=== PATIENT | female | born 1945 | race Two or more races ===

== ENCOUNTER 2021-01-19 19:33 | Inpatient (IN) | payer MEDICARE ==
[~2021-01-19] VITALS: Ht 157.5 cm; Wt 83.6 kg
--- NOTE | 2021-01-19 19:59 | PHYS DOC ---
Past Medical History Past Medical History: CAD, CVA, Diabetes-Type II, Hypertension Past Surgical History: Cholecystectomy, , Hysterectomy, Tonsillectomy Smoking Status: Never Smoker Alcohol Use: None Drug Use: None General Adult EDM: Chief Complaint: NAUSEA/VOMITING/DIARRHA HPI: HPI: Patient is a 75 year old female past medical history CVA hypertension hyperlipidemia diabetes and recent diagnosis of Covid presents with a chief complaint of headache nausea and generalized weakness. Patient states she was diagnosed with Covid on . Started having symptoms last Thursday which included severe headache. Since diagnosis patient states she has been severely nauseous and unable to eat or drink. She states she has had several episodes of diarrhea, a cough without sputum production and mild shortness of breath, and a runny nose. Review of Systems: Review of Systems: Constitutional: Denies fever or chills. [] Eyes: Denies change in visual acuity. [] HENT: Denies nasal congestion or sore throat. [] Respiratory: Positive cough denies DENIES shortness of breath. [] Cardiovascular: Denies chest pain or edema. [] GI: Denies abdominal pain, Positive nausea, Positive vomiting, Positive diarrhea. [] : Denies dysuria. [] Musculoskeletal: Denies back pain or joint pain. [] Integument: Denies rash. [] Neurologic: Positive headache, denies focal weakness or sensory changes. [] Endocrine: Denies polyuria or polydipsia. [] Lymphatic: Denies swollen glands. [] Psychiatric: Denies depression or anxiety. [] Heart Score: Risk Factors: Risk Factors: DM, Current or recent (<one month) smoker, HTN, HLP, family history of CAD, obesity. Risk Scores: Score 0 - 3: 2.5% MACE over next 6 weeks - Discharge Home Score 4 - 6: 20.3% MACE over next 6 weeks - Admit for Clinical Observation Score 7 - 10: 72.7% MACE over next 6 weeks - Early Invasive Strategies Allergies: Allergies: Allergies Coded Allergies Type Severity Reaction Last Updated Verified No Known Drug Allergies 03/26/16 No Physical Exam: PE: General: alert, no acute distress. Skin: warm, dry and intact. Head:: Normocephalic, atraumatic. Neck: Trachea midline. Eyes: EOMI, Normal conjunctiva, No drainage CARDIOVASCULAR: Regular rate and rhythm RESPIRATORY: No respiratory distress Back: Full range of motion. MUSCULOSKELETAL: Full range of motion of bilateral upper and lower extremities. GASTROINTESTINAL: Abdomen soft without rebound or guarding. NEUROLOGICAL: Alert and noted to person, place and time. No neurological deficits observed Psychiatric: Cooperative. Normal judgment EKG: EKG: EKG performed at 1940 heart rate [address] elevation no ST depression no acute NC [] Radiology/Procedures: Radiology/Procedures: [] Impression: FINDINGS: The cardiomediastinal silhouette and pulmonary vessels are within normal limits. The lung and pleural spaces are clear. IMPRESSION: No acute cardiopulmonary process. Course & Med Decision Making: Course & Med Decision Making Pertinent Labs and Imaging studies reviewed. (See chart for details) [] Patient was evaluated for chief complaint. Work-up consisted of laboratory analysis radiologic imaging and EKG. Results reviewed and discussed with patient. Treatment included [place] for pain and IV fluids. Dragon Disclaimer: Dragon Disclaimer: This electronic medical record was generated, in whole or in part, using a voice recognition dictation system. Departure Departure Impression: Primary Impression: COVID-19 Additional Impressions: Nausea and vomiting Diarrhea Headache Disposition: ADMITTED INPT THIS HOSP Condition: STABLE Referrals: GENARO GONSALEZ MD (PCP) YOSI BURCH DO Jan 19, 2021 19:59
[2021-01-19] MEDS ORDERED: ONDANSETRON PF 4 MG/2 ML VIAL. IVP ONE (20:00)
[2021-01-19] MEDS ORDERED: DEXAMETHASONE SOD PHOS 4 MG/ML VIAL IVP ONE (20:00)
[2021-01-19] MEDS ORDERED: IV NORMAL SALINE 1000ML BAG 1,000 ML IV ONE (20:00)
[2021-01-19 20:03] LABS: BASO % 0 % (0-3); EOS % 0 % (0-3); HEMATOCRIT 44.6 % (36.0-47.0); HEMOGLOBIN 15.3 g/dL (12.0-15.5); LYMPH # 1.4 x10^3/uL (1.0-4.8); LYMPH % 20 % (24-48); MEAN CORPUSCULAR HEMOGLOBIN 31 pg (25-35); MEAN CORPUSCULAR HGB CONC 34 g/dL (31-37); MEAN CORPUSCULAR VOLUME 90 fL (79-100); MONO # 0.7 x10^3/uL (0.0-1.1); MONO % 10 % (0-9); NEUT # 4.7 x10^3/uL (1.8-7.7); NEUT % 69 % (31-73); PLATELET COUNT 159 x10^3/uL (140-400); RED BLOOD COUNT 4.95 x10^6/uL (3.50-5.40); RED CELL DISTRIBUTION WIDTH 12.9 % (11.5-14.5); WHITE BLOOD COUNT 6.9 x10^3/uL (4.0-11.0)
--- NOTE | 2021-01-19 20:39 | RAD ---
Exam: Chest one view INDICATION: Covid, shortness of breath TECHNIQUE: Frontal view of the chest Comparisons: 03/26/2016 FINDINGS: The cardiomediastinal silhouette and pulmonary vessels are within normal limits. The lung and pleural spaces are clear. IMPRESSION: No acute cardiopulmonary process. Electronically signed by: Sadaf Salcido MD (01/19/2021 8:36 PM) BOB
[2021-01-19 20:54] LABS: CREATININE 1.1 mg/dL (0.6-1.0); GFR 48.3; POTASSIUM 4.1 mmol/L (3.5-5.1)
--- NOTE | 2021-01-19 20:58 | EKG ---
[facility] [address] [place] [address] Test Date: 2021-01-19 Test Time: 19:40:22 Pat Name: RAVI RADERDepartment: Room: Gender: F Delivery Agent: TIM : 1945 Requested By: YOSI BURCH Order Number: [id number] Reading MD: Measurements Intervals [place] Rate: 102 P: 0 IA: 144 QRS: -31 QRSD: 82 T: 59 QT: 312 QTc: 411 Interpretive Statements SINUS TACHYCARDIA ABNORMAL LEFT AXIS DEVIATION QRS(T) CONTOUR ABNORMALITY CONSISTENT WITH ANTEROSEPTAL INFARCT PROBABLY OLD CONSISTENT WITH INFERIOR INFARCT PROBABLY OLD ABNORMAL ECG RI6.02 No previous ECG available for comparison
[2021-01-19 21:00] LABS: ALBUMIN 3.4 g/dL (3.4-5.0); TOTAL BILIRUBIN 0.4 mg/dL (0.2-1.0); TOTAL PROTEIN 6.7 g/dL (6.4-8.2)
[2021-01-19] MEDS ORDERED: LABETALOL 20 MG/4 ML DISP.SYRIN. IVP ONE (21:30)
[2021-01-19] MEDS ORDERED: DEXTROSE 50% 25 GM / 50ML DISP.SYRIN. IV PRN (21:45)
[2021-01-19] MEDS ORDERED: ACETAMINOPHEN 325 MG TABLET. PO PRN (21:45)
[2021-01-19] MEDS ORDERED: DOCUSATE SODIUM 100 MG CAPSULE. PO PRN (21:45)
[2021-01-19] MEDS ORDERED: SENNOSIDES 8.6 MG TABLET PO PRN (21:45)
[2021-01-19] MEDS ORDERED: ONDANSETRON PF 4 MG/2 ML VIAL. IVP PRN (21:45)
[2021-01-19] MEDS ORDERED: HYDROcodone/APAP 5/325MG 1 TAB TABLET PO ONE (22:00)
[2021-01-19 23:50] VITALS: BP 147/82
--- NOTE | 2021-01-20 00:01 | NUR ---
Admitted to room 646 from ER in stable condition. While completing initial assessment patient stated code status wishes are to be a DNR. Educated patient on what a DNR means, patient again verbalized that DNR status was her choice. Spoke to Dr. Craig who gave telephone order and was verified by patient with two RNs. Judi Gardiner, RN & Doris Abarca RN.
[2021-01-20] MEDS: IV NORMAL SALINE 1000ML BAG 1,000 ML IV SCH ×3 (00:41→20:52)
[2021-01-20] MEDS ORDERED: METF500T16 PO (00:47)
[2021-01-20] MEDS ORDERED: GLIP5TAB10 PO (00:47)
[2021-01-20] MEDS ORDERED: CLOP75TA PO (00:47)
[2021-01-20] MEDS ORDERED: MULT-650 PO (02:16)
[2021-01-20] MEDS ORDERED: LISI-130 PO (02:16)
[2021-01-20] MEDS ORDERED: CALC-58 PO (02:16)
[2021-01-20] MEDS ORDERED: LOVA40TA2 PO (02:16)
[2021-01-20] MEDS ORDERED: FLUT16SP NS (02:16)
[2021-01-20] MEDS ORDERED: DULO30CA2 PO (02:16)
[2021-01-20] MEDS ORDERED: NITR0.4T24 SL (02:16)
[2021-01-20] MEDS ORDERED: LORA10TA3 PO (02:16)
[2021-01-20] MEDS ORDERED: AVENOVA (02:17)
[2021-01-20] MEDS ORDERED: DICL100G54 TP (02:17)
[2021-01-20] MEDS ORDERED: GABA600T7 PO (02:17)
[2021-01-20] MEDS ORDERED: CINN500C2 PO (02:21)
[2021-01-20] MEDS ORDERED: CRAN250C PO (02:21)
[2021-01-20 04:30] LABS: BASO % 0 % (0-3); EOS % 0 % (0-3); HEMATOCRIT 42.4 % (36.0-47.0); LYMPH # 0.7 x10^3/uL (1.0-4.8); LYMPH % 14 % (24-48); MEAN CORPUSCULAR HEMOGLOBIN 30 pg (25-35); MEAN CORPUSCULAR HGB CONC 33 g/dL (31-37); MEAN CORPUSCULAR VOLUME 91 fL (79-100); MONO # 0.2 x10^3/uL (0.0-1.1); MONO % 4 % (0-9); NEUT # 4.3 x10^3/uL (1.8-7.7); NEUT % 82 % (31-73); PLATELET COUNT 156 x10^3/uL (140-400); RED BLOOD COUNT 4.64 x10^6/uL (3.50-5.40); RED CELL DISTRIBUTION WIDTH 13.3 % (11.5-14.5); WHITE BLOOD COUNT 5.2 x10^3/uL (4.0-11.0)
[2021-01-20 04:32] VITALS: BP 168/87
[2021-01-20 04:46] LABS: CALCIUM 8.7 mg/dL (8.5-10.1); CREATININE 1.2 mg/dL (0.6-1.0); GFR 43.7; MAGNESIUM 1.2 mg/dL (1.8-2.4); PHOSPHORUS 3.2 mg/dL (2.6-4.7); POTASSIUM 5.4 mmol/L (3.5-5.1)
[2021-01-20 07:25] VITALS: BP 192/78
[2021-01-20] MEDS: PANTOPRAZOLE IV PUSH 40 MG VIAL. IVP SCH (07:54)
[2021-01-20 10:59] VITALS: BP 190/84
[2021-01-20] MEDS: HYDROcodone/APAP 5/325MG 1 TAB TABLET PO PRN (12:13)
--- NOTE | 2021-01-20 12:48 | HP ---
ADMIT DATE: 01/20/2021 CHIEF COMPLAINT: COVID-19, nausea, vomiting, diarrhea, headache and weakness. HISTORY OF PRESENT ILLNESS: The patient is a pleasant 75-year-old female who was diagnosed with COVID-19 about 4 days ago. Now, she has nausea, vomiting, diarrhea, headache and just feels weak. Basically, she has a progression of her COVID-19 disease. I discussed the case with the ER physician. We are going to admit the patient and treat her with COVID protocol. PAST MEDICAL HISTORY: Recent diagnosis of COVID-19 four days ago, CAD, stroke, diabetes, hypertension, cholecystectomy, , hysterectomy, and tonsillectomy. ALLERGIES: None. FAMILY HISTORY: Diabetes. SOCIAL HISTORY: She does not drink, smoke or take drugs. MEDICATIONS: Reviewed, please for the MRAD. REVIEW OF SYSTEMS: GENERAL: No history of weight change, weakness or fevers. SKIN: No bruising, hair changes or rashes. EYES: No blurred, double or loss of vision. NOSE AND THROAT: No history of nosebleeds, hoarseness or sore throat. HEART: No history of palpitations, chest pain or shortness of breath on exertion. LUNGS: She complains of cough. GASTROINTESTINAL: She complains of nausea, vomiting, and diarrhea. GENITOURINARY: No history of frequency, urgency, hesitancy or nocturia. NEUROLOGIC: She complains of headache. PSYCHIATRIC: No history of panic, anxiety or depression. ENDOCRINE: No history of heat or cold intolerance, polyuria or polydipsia. EXTREMITIES: Denies muscle weakness, joint pain, pain on walking or stiffness. PHYSICAL EXAMINATION: VITALS: Within normal limits and are stable. GENERAL: No apparent distress. Alert and oriented. HEENT: Normal cephalic atraumatic, external auditory canals are patent. Eyes: Extraocular muscles are intact, pupils are equally round and reactive to light and accommodation. MUSCULOSKELETAL: Well developed, well nourished, good range of motion. ENDOCRINE: No thyromegaly was palpated. LYMPHATICS: No cervical chain or axillary nodes were noted. HEMATOPOIETIC: No bruising. NECK: Supple, no JVD, no thyromegaly was noted. LUNGS: She has decreased breath sounds on the right with some slight crackles on the left. HEART: RRR, S1, S2 present. Peripheral pulses intact, no obvious murmurs were noted. ABDOMEN: She has got decreased bowel sounds. EXTREMITIES: Without any cyanosis, clubbing, or edema. Pedal pulses intact, Homans sign is negative. NEUROLOGIC: Normal speech, normal tone. A and O x 3, moves all extremities, no obvious focal deficits. PSYCHIATRIC: Normal affect, normal mood. Stable. SKIN: No ulcerations or rashes, good skin turgor, no jaundice. VASCULAR: Good capillary refill, neurovascular bundle appears to be intact. LABORATORY DATA: White count 5, hemoglobin 14, platelets 156. Electrolytes are normal other than potassium of 5.4 and sodium of 133, BUN is 21, creatinine 1.2, glucose 193. Chest x-ray shows no acute process. ASSESSMENT AND PLAN: Recent diagnosis of COVID-19 with progression of disease with headache, nausea, vomiting, diarrhea, and cough. The patient has been admitted. We will order COVID protocol including steroids, antibiotics with Rocephin and doxycycline, vitamins with minerals, oxygen per nasal cannula, codeine cough syrup, aspirin and since she is not hypoxic and does not have a severe leukocytosis or any fever, we can probably hold off on remdesivir for now, but we will monitor that closely. Home meds. DVT prophylaxis. Full code. WILLI RENEE DO DR: TYREE/jatin JOB#: [id number] / [id number]
[2021-01-20] MEDS: ASPIRIN CHEWABLE 81 MG TABLET. PO SCH (13:00)
[2021-01-20] MEDS: DOXYCYCLINE HYCLATE 100 MG TABLET PO SCH ×2 (13:00→20:54)
[2021-01-20] MEDS: MULTIVITAMIN with MINERAL TABLET. PO SCH (13:01)
[2021-01-20] MEDS: cefTRIAXone IV Push 1 GM VIAL. IVP SCH (13:01)
[2021-01-20] MEDS: methylPREDNISolone SOD SUCC PF 40 MG/ML VIAL. IV SCH ×2 (13:01→20:52)
[2021-01-20 15:59] VITALS: BP 191/96
[2021-01-20] MEDS ORDERED: MAGNESIUM SULFATE 2GM 50 ML IV ONE (16:30)
[2021-01-20 19:00] VITALS: BP 187/73
[2021-01-20] MEDS: LACTOBACILLUS RHAMNOSUS GG 1 CAPSULE. PO SCH (20:54)
[2021-01-20] MEDS: ENOXAPARIN 40 MG/0.4 ML SYRINGE. SQ SCH ×2 (20:54→21:00)
[2021-01-20] MEDS ORDERED: cloNIDine HCL 0.3 MG TABLET PO PRN (21:30)
[2021-01-20] MEDS ORDERED: NITROGLYCERIN SUBLINGUAL 0.4 MG BOTTLE OF 25. SL PRN (21:30)
[2021-01-20] MEDS ORDERED: DICLOFENAC SODIUM 1% TOPICAL GEL 100GM TUBE. TP PRN (21:30)
[2021-01-20] MEDS: GABAPENTIN 300 MG CAPSULE. PO SCH (21:55)
[2021-01-20] MEDS: ATORVASTATIN CALCIUM 10 MG TABLET. PO SCH (21:55)
[2021-01-20] MEDS: CLOPIDOGREL BISULFATE 75 MG TABLET PO SCH (21:56)
[2021-01-20] MEDS: glipiZIDE 5 MG TABLET PO SCH (21:57)
[2021-01-20 23:00] VITALS: BP 189/91
[2021-01-21] VITALS (7 sets, daily range): BP systolic 156–198; BP diastolic 70–100
[2021-01-21] MEDS: IV NORMAL SALINE 1000ML BAG 1,000 ML IV SCH ×2 (04:00→13:36)
[2021-01-21] MEDS ORDERED: IRON PO SCH (09:00)
[2021-01-21] MEDS ORDERED: MULTIVITS MIN PO SCH (09:00)
[2021-01-21] MEDS ORDERED: LUTEIN PO SCH (09:00)
[2021-01-21] MEDS ORDERED: [UNRECOGNIZED DRUG - OTHER] PO SCH (09:00)
[2021-01-21] MEDS: PANTOPRAZOLE IV PUSH 40 MG VIAL. IVP SCH (09:28)
[2021-01-21] MEDS: CLOPIDOGREL BISULFATE 75 MG TABLET PO SCH (09:28)
[2021-01-21] MEDS: FLUTICASONE 50MCG/NASAL SPRAY 16GM BOTTLE. NS SCH (09:28)
[2021-01-21] MEDS: DULoxetine HCL 30 MG CAPSULE.DR PO SCH (09:28)
[2021-01-21] MEDS: methylPREDNISolone SOD SUCC PF 40 MG/ML VIAL. IV SCH ×2 (09:29→21:17)
[2021-01-21] MEDS: DOXYCYCLINE HYCLATE 100 MG TABLET PO SCH ×2 (09:29→21:17)
[2021-01-21] MEDS: glipiZIDE 5 MG TABLET PO SCH ×2 (09:29→21:18)
[2021-01-21] MEDS: MULTIVITAMIN with MINERAL TABLET. PO SCH (09:29)
[2021-01-21] MEDS: GABAPENTIN 300 MG CAPSULE. PO SCH ×2 (09:29→21:18)
[2021-01-21] MEDS: LISINOPRIL 20 MG TABLET PO SCH (09:29)
[2021-01-21] MEDS: LACTOBACILLUS RHAMNOSUS GG 1 CAPSULE. PO SCH ×2 (09:29→21:18)
[2021-01-21] MEDS: ASPIRIN CHEWABLE 81 MG TABLET. PO SCH (09:30)
[2021-01-21] MEDS: CETIRIZINE HCL 10 MG TABLET. PO SCH (09:30)
[2021-01-21] MEDS: metFORMIN 500 MG TABLET PO SCH ×2 (09:39→17:48)
[2021-01-21] MEDS: guaiFENesin/CODEINE 100mg/10mg 5 ML LIQUID PO PRN ×2 (09:45→17:58)
--- NOTE | 2021-01-21 12:29 | NUR ---
CHRISTOPHER following for discharge planning. Spoke with RN and reviewed chart. Pt lives home alone. Pt currently on room air, IV Rocephin, ADA diet, COVID positive. PT/OT recommendation is SNU. CHRISTOPHER spoke with pt who is agreeable. Pt stated no preference in SNU provider stating she has never been to one. Pt choice of vendor form completed. CHRISTOPHER phoned and faxed referral to [facility] as they take pt's [employer] insurance and patients who are COVID positive. Pt stated she tested positive on 01/17. CHRISTOPHER following. Addendum: 01/21/21 at 1532 by RADHA WHITE Spoke with Shandra and pt accepted clinically for admission at [facility]. Shandra to submit for insurance authorization today, 01/21. Possible discharge tomorrow pending insurance approval.
--- NOTE | 2021-01-21 12:55 | PDOC ---
PROGRESS NOTES Date of Service: DATE: 01/21/21 TIME: 12:52 Chief Complaint Chief Complaint acute COVID-19 with progression of disease with headache, nausea, vomiting, diarrhea, and cough. hold off on remdesivir History of Present Illness History of Present Illness cont the COVID protocol including steroids, antibiotics with Rocephin and doxycycline, vitamins with minerals, oxygen per nasal cannula, PT seleneal says she is too weak to DC home, Vitals Vitals Vital Signs Date Time Temp Pulse Resp B/P (MAP) Pulse Ox O2 Delivery O2 Flow Rate FiO2 01/21/21 11:00 97.6 60 18 158/77 (104) 98 Room Air 97.6 Physical Exam General: Alert, Oriented X3, Cooperative, mild distress Heart: Regular rate, Normal S2 Lungs: Wheezing Abdomen: Normal bowel sounds Extremities: No clubbing, No cyanosis, No edema Labs LABS Laboratory Tests Test 01/20/21 16:51 01/20/21 20:10 01/21/21 07:07 01/21/21 10:39 Glucose (Fingerstick) 228 mg/dL (70-99) 274 mg/dL (70-99) 219 mg/dL (70-99) 254 mg/dL (70-99) Review of Systems Review of Systems she feels improved and is hoping to DC soon Assessment and Plan Assessmemt and Plan Problems Medical Problems: (1) COVID-19 Status: Acute (2) Diarrhea Status: Acute (3) Headache Status: Acute (4) Nausea and vomiting Status: Acute Comment Review of Relevant I have reviewed the following items kaylee (where applicable) has been applied. Labs Laboratory Tests Test 01/19/21 19:49 01/19/21 20:32 01/20/21 03:30 01/20/21 11:46 White Blood Count 6.9 x10^3/uL (4.0-11.0) 5.2 x10^3/uL (4.0-11.0) Red Blood Count 4.95 x10^6/uL (3.50-5.40) 4.64 x10^6/uL (3.50-5.40) Hemoglobin 15.3 g/dL (12.0-15.5) 14.0 g/dL (12.0-15.5) Hematocrit 44.6 % (36.0-47.0) 42.4 % (36.0-47.0) Mean Corpuscular Volume 90 fL (79-100) 91 fL (79-100) Mean Corpuscular Hemoglobin 31 pg (25-35) 30 pg (25-35) Mean Corpuscular Hemoglobin Concent 34 g/dL (31-37) 33 g/dL (31-37) Red Cell Distribution Width 12.9 % (11.5-14.5) 13.3 % (11.5-14.5) Platelet Count 159 x10^3/uL (140-400) 156 x10^3/uL (140-400) Neutrophils (%) (Auto) 69 % (31-73) 82 % (31-73) Lymphocytes (%) (Auto) 20 % (24-48) 14 % (24-48) Monocytes (%) (Auto) 10 % (0-9) 4 % (0-9) Eosinophils (%) (Auto) 0 % (0-3) 0 % (0-3) Basophils (%) (Auto) 0 % (0-3) 0 % (0-3) Neutrophils # (Auto) 4.7 x10^3/uL (1.8-7.7) 4.3 x10^3/uL (1.8-7.7) Lymphocytes # (Auto) 1.4 x10^3/uL (1.0-4.8) 0.7 x10^3/uL (1.0-4.8) Monocytes # (Auto) 0.7 x10^3/uL (0.0-1.1) 0.2 x10^3/uL (0.0-1.1) Eosinophils # (Auto) 0.0 x10^3/uL (0.0-0.7) 0.0 x10^3/uL (0.0-0.7) Basophils # (Auto) 0.0 x10^3/uL (0.0-0.2) 0.0 x10^3/uL (0.0-0.2) Sodium Level 133 mmol/L (136-145) 138 mmol/L (136-145) Potassium Level 4.1 mmol/L (3.5-5.1) 5.4 mmol/L (3.5-5.1) Chloride Level 99 mmol/L (98-107) 104 mmol/L (98-107) Carbon Dioxide Level 21 mmol/L (21-32) 26 mmol/L (21-32) Anion Gap 13 (6-14) 8 (6-14) Blood Urea Nitrogen 20 mg/dL (7-20) 21 mg/dL (7-20) Creatinine 1.1 mg/dL (0.6-1.0) 1.2 mg/dL (0.6-1.0) Estimated GFR (Cockcroft-Gault) 48.3 43.7 BUN/Creatinine Ratio 18 (6-20) Glucose Level 183 mg/dL (70-99) 193 mg/dL (70-99) Calcium Level 9.0 mg/dL (8.5-10.1) 8.7 mg/dL (8.5-10.1) Total Bilirubin 0.4 mg/dL (0.2-1.0) Aspartate Amino Transf (AST/SGOT) 58 U/L (15-37) Alanine Aminotransferase (ALT/SGPT) 57 U/L (14-59) Alkaline Phosphatase 89 U/L (46-116) Troponin I Quantitative < 0.017 ng/mL (0.000-0.055) Total Protein 6.7 g/dL (6.4-8.2) Albumin 3.4 g/dL (3.4-5.0) Albumin/Globulin Ratio 1.0 (1.0-1.7) Phosphorus Level 3.2 mg/dL (2.6-4.7) Magnesium Level 1.2 mg/dL (1.8-2.4) Glucose (Fingerstick) 190 mg/dL (70-99) Test 01/20/21 16:51 01/20/21 20:10 01/21/21 07:07 01/21/21 10:39 Glucose (Fingerstick) 228 mg/dL (70-99) 274 mg/dL (70-99) 219 mg/dL (70-99) 254 mg/dL (70-99) Laboratory Tests Test 01/20/21 16:51 01/20/21 20:10 01/21/21 07:07 01/21/21 10:39 Glucose (Fingerstick) 228 mg/dL (70-99) 274 mg/dL (70-99) 219 mg/dL (70-99) 254 mg/dL (70-99) Medications Current Medications Ondansetron HCl (Zofran) 4 mg 1X ONCE IVP Last administered on 01/19/21at 20:35; Start 01/19/21 at 20:00; Stop 01/19/21 at 20:01; Status DC Sodium Chloride 1,000 ml @ 1,000 mls/hr 1X ONCE IV Last administered on 01/19/21at 20:35; Start 01/19/21 at 20:00; Stop 01/19/21 at 20:59; Status DC Dexamethasone Sodium Phosphate (Decadron) 10 mg 1X ONCE IVP Last administered on 01/19/21at 20:36; Start 01/19/21 at 20:00; Stop 01/19/21 at 20:06; Status DC Labetalol HCl (Normodyne Iv Push) 20 mg 1X ONCE IVP Last administered on 01/19/21at 21:11; Start 01/19/21 at 21:30; Stop 01/19/21 at 21:31; Status DC Acetaminophen/ Hydrocodone Bitart (Lortab 5/325) 1 tab 1X ONCE PO Last administered on 01/19/21at 21:55; Start 01/19/21 at 22:00; Stop 01/19/21 at 22:01; Status DC Sennosides (Senna) 17.2 mg PRN BID PRN PO CONSTIPATION; Start 01/19/21 at 21:45 Docusate Sodium (Colace) 100 mg PRN DAILY PRN PO HARD STOOLS; Start 01/19/21 at 21:45 Ondansetron HCl (Zofran) 4 mg PRN Q6HRS PRN IVP NAUSEA/VOMITING 1ST CHOICE Last administered on 01/20/21at 00:40; Start 01/19/21 at 21:45 Dextrose (Dextrose 50%-Water Syringe) 12.5 gm PRN Q15MIN PRN IV SEE COMMENTS; Start 01/19/21 at 21:45 Sodium Chloride 1,000 ml @ 100 mls/hr Q10H IV Last administered on 01/20/21at 20:52; Start 01/19/21 at 22:00 Acetaminophen (Tylenol) 650 mg PRN Q4HRS PRN PO TEMP OVER 100.4F OR MILD PAIN; Start 01/19/21 at 21:45 Pantoprazole Sodium (PROTONIX VIAL for IV PUSH) 40 mg DAILYAC IVP Last administered on 01/21/21 09:28; Start 01/20/21 at 07:30 Acetaminophen/ Hydrocodone Bitart (Lortab 5/325) 1 tab PRN Q6HRS PRN PO MODERATE PAIN 4-6 Last administered on 01/20/21at 12:13; Start 01/20/21 at 01:15 Multivitamins (Thera M Plus) 1 tab DAILY PO Last administered on 01/21/21 09:29; Start 01/20/21 at 13:00 Aspirin (Aspirin Chewable) 81 mg DAILYWBKFT PO Last administered on 01/21/21 09:30; Start 01/20/21 at 13:00 Guaifenesin/ Codeine Phosphate (Robitussin Ac) 5 ml PRN Q6HRS PRN PO COUGH; Start 01/20/21 at 12:30 Doxycycline Hyclate (Vibra-Tab) 100 mg BID PO Last administered on 01/21/21 09:29; Start 01/20/21 at 13:00 Ceftriaxone Sodium (Rocephin) 1 gm Q24H IVP Last administered on 01/20/21at 13:01; Start 01/20/21 at 13:00 Methylprednisolone Sodium Succinate (SOLU-Medrol 40MG VIAL) 40 mg BID IV Last a dministered on 01/21/21 09:29; Start 01/20/21 at 13:00 Enoxaparin Sodium (Lovenox 40mg Syringe) 40 mg Q24H SQ ; Start 01/20/21 at 21:00 Magnesium Sulfate 50 ml @ 25 mls/hr 1X ONCE IV Last administered on 01/20/21at 16:55; Start 01/20/21 at 16:30; Stop 01/20/21 at 18:29; Status DC Lactobacillus Rhamnosus (Culturelle) 1 cap BID PO Last administered on 01/21/21 09:29; Start 01/20/21 at 21:00 Clonidine HCl (Catapres) 0.3 mg 1X PRN PRN PO HYPERTENSION Last administered on 01/20/21at 21:55; Start 01/20/21 at 21:30 Clopidogrel Bisulfate (Plavix) 75 mg DAILY PO Last administered on 01/21/21 09:28; Start 01/20/21 at 22:00 Diclofenac Sodium (Voltaren) 1 sawyer PRN QID PRN TP MUSCLE PAIN; Start 01/20/21 at 21:30 Duloxetine HCl (Cymbalta) 30 mg DAILY PO Last administered on 01/21/21 09:28; Start 01/21/21 at 09:00 Fluticasone Propionate (Flonase) 2 spray DAILY NS Last administered on 01/21/21 09:28; Start 01/21/21 at 09:00 Glipizide (Glucotrol) 5 mg BID PO Last administered on 01/21/21 09:29; Start 01/20/21 at 22:00 Lisinopril (Prinivil) 40 mg DAILY PO Last administered on 01/21/21 09:29; Start 01/21/21 at 09:00 Metformin HCl (Glucophage) 500 mg BIDWMEALS PO Last administered on 01/21/21at 09:39; Start 01/21/21 at 08:00 Nitroglycerin (Nitrostat) 0.4 mg PRN Q5MIN PRN SL CHEST PAIN; Start 01/20/21 at 21:30 Gabapentin (Neurontin) 300 mg BID PO Last administered on 01/21/21 09:29; Start 01/20/21 at 22:00 Cetirizine HCl (ZyrTEC) 10 mg DAILY PO Last administered on 01/21/21 09:30; Start 01/21/21 at 09:00 Atorvastatin Calcium (Lipitor) 10 mg QHS PO Last administered on 01/20/21at 21:55; Start 01/20/21 at 22:00 Non-Formulary Medication (Multivits-Min/ Iron/FA/Lutein (Centrum Silver Women Tablet)) 1 each DAILY PO ; Start 01/21/21 at 09:00; Status UNV Active Scripts Active Reported Cinnamon (Cinnamon Bark) 500 Mg Capsule 2,000 Mg PO BID Cranberry (Cranberry Extract) 250 Mg Capsule 1 Cap PO BID 30 Days [avenova] Voltaren (Diclofenac Sodium) 100 Gm Gel..gram. 1 Gm TP QID PRN 30 Days apply to affected area(s) Gabapentin 600 Mg Tablet 300 Mg PO BID Cymbalta (Duloxetine Hcl) 30 Mg Capsule.dr 1 Cap PO DAILY Nitrostat (Nitroglycerin) 0.4 Mg Tab.subl 0.4 Mg SL PRN Q5MIN PRN Calcium 600+D Plus Minerals Tb (Calcium Carb/Vit D3/Minerals) 1 Each Tablet 2 Tab PO BID 30 Days Centrum Silver Women Tablet (Multivits-Min/Iron/FA/Lutein) 1 Each Tablet 1 Each PO DAILY Fluticasone Propionate Nasal [place] (Fluticasone Propionate) 16 Gm [place].susp 2 [place] NS DAILY Loratadine 10 Mg Tablet 1 Tab PO DAILY Lisinopril 40 Mg Tablet 1 Tab PO DAILY Lovastatin 40 Mg Tablet 40 Mg PO HS Metformin Hcl 500 Mg Tablet 500 Mg PO BIDWMEALS PRN Glipizide 5 Mg Tablet 1 Tab PO BID Clopidogrel (Clopidogrel Bisulfate) 75 Mg Tablet 1 Tab PO DAILY Vitals/I & O Vital Sign - Last 24 Hours 01/20/21 01/20/21 01/20/21 01/20/21 15:59 19:00 20:00 21:55 Temp 97.1 96.9 97.1 96.9 Pulse 58 66 69 Resp 18 18 B/P (MAP) 191/96 (127) 187/73 (111) 208/105 Pulse Ox 98 100 O2 Delivery Room Air Room Air Room Air 01/20/21 01/21/21 01/21/21 01/21/21 23:00 03:00 07:00 08:00 Temp 97.2 97.0 97.0 97.2 97.0 97.0 Pulse 65 63 83 Resp 16 18 18 B/P (MAP) 189/91 (123) 179/81 (113) 198/100 (132) Pulse Ox 99 100 97 O2 Delivery Room Air Room Air Room Air Room Air 01/21/21 01/21/21 01/21/21 09:29 09:30 11:00 Temp 97.6 97.6 Pulse 83 73 60 Resp 18 B/P (MAP) 198/100 163/70 (101) 158/77 (104) Pulse Ox 98 O2 Delivery Room Air Intake and Output 01/20/21 01/20/21 01/21/21 15:00 23:00 07:00 Intake Total 240 ml 400 ml 1300 ml Output Total 600 ml Balance 240 ml 400 ml 700 ml Justicifation of Admission Dx: Justifications for Admission: Justification of Admission Dx: Yes JACQUIE MISTRY MD Jan 21, 2021 12:55
[2021-01-21] MEDS: cefTRIAXone IV Push 1 GM VIAL. IVP SCH (13:35)
[2021-01-21] MEDS: ENOXAPARIN 40 MG/0.4 ML SYRINGE. SQ SCH ×2 (21:00→21:17)
[2021-01-21] MEDS: ATORVASTATIN CALCIUM 10 MG TABLET. PO SCH (21:18)
[2021-01-22] MEDS: IV NORMAL SALINE 1000ML BAG 1,000 ML IV SCH (01:22)
[2021-01-22 03:00] VITALS: BP 208/97
[2021-01-22] MEDS: guaiFENesin/CODEINE 100mg/10mg 5 ML LIQUID PO PRN (05:40)
[2021-01-22] MEDS: HYDROcodone/APAP 5/325MG 1 TAB TABLET PO PRN (05:41)
[2021-01-22] MEDS ORDERED: LABETALOL 20 MG/4 ML DISP.SYRIN. IVP PRN (06:45)
[2021-01-22 07:00] VITALS: BP 217/98
[2021-01-22] MEDS: methylPREDNISolone SOD SUCC PF 40 MG/ML VIAL. IV SCH (07:51)
[2021-01-22] MEDS: ASPIRIN CHEWABLE 81 MG TABLET. PO SCH (07:51)
[2021-01-22] MEDS: metFORMIN 500 MG TABLET PO SCH (07:51)
[2021-01-22] MEDS: LACTOBACILLUS RHAMNOSUS GG 1 CAPSULE. PO SCH (07:51)
[2021-01-22] MEDS: PANTOPRAZOLE IV PUSH 40 MG VIAL. IVP SCH (07:51)
[2021-01-22] MEDS: MULTIVITAMIN with MINERAL TABLET. PO SCH (07:52)
[2021-01-22] MEDS: GABAPENTIN 300 MG CAPSULE. PO SCH (07:52)
[2021-01-22] MEDS: DOXYCYCLINE HYCLATE 100 MG TABLET PO SCH (07:52)
[2021-01-22] MEDS: glipiZIDE 5 MG TABLET PO SCH (07:52)
[2021-01-22] MEDS: CLOPIDOGREL BISULFATE 75 MG TABLET PO SCH (07:52)
[2021-01-22] MEDS: DULoxetine HCL 30 MG CAPSULE.DR PO SCH (07:52)
[2021-01-22] MEDS: CETIRIZINE HCL 10 MG TABLET. PO SCH (07:54)
--- NOTE | 2021-01-22 08:37 | PDOC ---
PROGRESS NOTES Date of Service: DATE: 01/22/21 TIME: 08:36 Chief Complaint Chief Complaint acute COVID-19 with progression of disease with headache, nausea, vomiting, diarrhea, and cough. hold off on remdesivir History of Present Illness History of Present Illness 01/22, more weakness today, headache, some decnet PO intake, she can barely get to the bathroom with a walker due to weakness, acute COVID symptoms cont the COVID protocol including steroids, antibiotics with Rocephin and doxycycline, vitamins with minerals, oxygen per nasal cannula, PT benny says she is too weak to DC home, Vitals Vitals Vital Signs Date Time Temp Pulse Resp B/P (MAP) Pulse Ox O2 Delivery O2 Flow Rate FiO2 01/22/21 07:00 97.8 70 18 217/98 (137) 99 Nasal Cannula 2.0 97.8 Physical Exam General: Alert, Oriented X3, Cooperative, mild distress Heart: Regular rate, Normal S2 Lungs: Wheezing Abdomen: Normal bowel sounds Extremities: No clubbing, No cyanosis, No edema Labs LABS Laboratory Tests Test 01/21/21 10:39 01/21/21 16:39 01/21/21 19:07 01/22/21 07:08 Glucose (Fingerstick) 254 mg/dL (70-99) 132 mg/dL (70-99) 195 mg/dL (70-99) 156 mg/dL (70-99) Assessment and Plan Assessmemt and Plan Problems Medical Problems: (1) COVID-19 Status: Acute (2) Diarrhea Status: Acute (3) Headache Status: Acute (4) Nausea and vomiting Status: Acute Comment Review of Relevant I have reviewed the following items kaylee (where applicable) has been applied. Labs Laboratory Tests Test 01/20/21 11:46 01/20/21 16:51 01/20/21 20:10 01/21/21 07:07 Glucose (Fingerstick) 190 mg/dL (70-99) 228 mg/dL (70-99) 274 mg/dL (70-99) 219 mg/dL (70-99) Test 01/21/21 10:39 01/21/21 16:39 01/21/21 19:07 01/22/21 07:08 Glucose (Fingerstick) 254 mg/dL (70-99) 132 mg/dL (70-99) 195 mg/dL (70-99) 156 mg/dL (70-99) Laboratory Tests Test 01/21/21 10:39 01/21/21 16:39 01/21/21 19:07 01/22/21 07:08 Glucose (Fingerstick) 254 mg/dL (70-99) 132 mg/dL (70-99) 195 mg/dL (70-99) 156 mg/dL (70-99) Medications Current Medications Ondansetron HCl (Zofran) 4 mg 1X ONCE IVP Last administered on 01/19/21at 20:35; Start 01/19/21 at 20:00; Stop 01/19/21 at 20:01; Status DC Sodium Chloride 1,000 ml @ 1,000 mls/hr 1X ONCE IV Last administered on 01/19/21at 20:35; Start 01/19/21 at 20:00; Stop 01/19/21 at 20:59; Status DC Dexamethasone Sodium Phosphate (Decadron) 10 mg 1X ONCE IVP Last administered on 01/19/21at 20:36; Start 01/19/21 at 20:00; Stop 01/19/21 at 20:06; Status DC Labetalol HCl (Normodyne Iv Push) 20 mg 1X ONCE IVP Last administered on 01/19/21at 21:11; Start 01/19/21 at 21:30; Stop 01/19/21 at 21:31; Status DC Acetaminophen/ Hydrocodone Bitart (Lortab 5/325) 1 tab 1X ONCE PO Last a dministered on 01/19/21at 21:55; Start 01/19/21 at 22:00; Stop 01/19/21 at 22:01; Status DC Sennosides (Senna) 17.2 mg PRN BID PRN PO CONSTIPATION; Start 01/19/21 at 21:45 Docusate Sodium (Colace) 100 mg PRN DAILY PRN PO HARD STOOLS; Start 01/19/21 at 21:45 Ondansetron HCl (Zofran) 4 mg PRN Q6HRS PRN IVP NAUSEA/VOMITING 1ST CHOICE Last administered on 01/20/21at 00:40; Start 01/19/21 at 21:45 Dextrose (Dextrose 50%-Water Syringe) 12.5 gm PRN Q15MIN PRN IV SEE COMMENTS; Start 01/19/21 at 21:45 Sodium Chloride 1,000 ml @ 100 mls/hr Q10H IV Last administered on 01/22/21 01:22; Start 01/19/21 at 22:00 Acetaminophen (Tylenol) 650 mg PRN Q4HRS PRN PO TEMP OVER 100.4F OR MILD PAIN; Start 01/19/21 at 21:45 Pantoprazole Sodium (PROTONIX VIAL for IV PUSH) 40 mg DAILYAC IVP Last administered on 01/22/21 07:51; Start 01/20/21 at 07:30 Acetaminophen/ Hydrocodone Bitart (Lortab 5/325) 1 tab PRN Q6HRS PRN PO MODERATE PAIN 4-6 Last administered on 01/22/21 05:41; Start 01/20/21 at 01:15 Multivitamins (Thera M Plus) 1 tab DAILY PO Last administered on 01/22/21 07:52; Start 01/20/21 at 13:00 Aspirin (Aspirin Chewable) 81 mg DAILYWBKFT PO Last administered on 01/22/21 07:51; Start 01/20/21 at 13:00 Guaifenesin/ Codeine Phosphate (Robitussin Ac) 5 ml PRN Q6HRS PRN PO COUGH Last administered on 01/22/21 05:40; Start 01/20/21 at 12:30 Doxycycline Hyclate (Vibra-Tab) 100 mg BID PO Last administered on 01/22/21 07:52; Start 01/20/21 at 13:00 Ceftriaxone Sodium (Rocephin) 1 gm Q24H IVP Last administered on 01/21/21 13:35; Start 01/20/21 at 13:00 Methylprednisolone Sodium Succinate (SOLU-Medrol 40MG VIAL) 40 mg BID IV Last administered on 01/22/21 07:51; Start 01/20/21 at 13:00 Enoxaparin Sodium (Lovenox 40mg Syringe) 40 mg Q24H SQ ; Start 01/20/21 at 21:00 Magnesium Sulfate 50 ml @ 25 mls/hr 1X ONCE IV Last administered on 01/20/21at 16:55; Start 01/20/21 at 16:30; Stop 01/20/21 at 18:29; Status DC Lactobacillus Rhamnosus (Culturelle) 1 cap BID PO Last administered on 01/22/21 07:51; Start 01/20/21 at 21:00 Clonidine HCl (Catapres) 0.3 mg 1X PRN PRN PO HYPERTENSION Last administered on 01/20/21at 21:55; Start 01/20/21 at 21:30 Clopidogrel Bisulfate (Plavix) 75 mg DAILY PO Last administered on 01/22/21 07:52; Start 01/20/21 at 22:00 Diclofenac Sodium (Voltaren) 1 sawyer PRN QID PRN TP MUSCLE PAIN; Start 01/20/21 at 21:30 Duloxetine HCl (Cymbalta) 30 mg DAILY PO Last administered on 01/22/21 07:52; Start 01/21/21 at 09:00 Fluticasone Propionate (Flonase) 2 spray DAILY NS Last administered on 01/21/21at 09:28; Start 01/21/21 at 09:00 Glipizide (Glucotrol) 5 mg BID PO Last administered on 01/22/21at 07:52; Start 01/20/21 at 22:00 Lisinopril (Prinivil) 40 mg DAILY PO Last administered on 01/21/21at 09:29; Start 01/21/21 at 09:00 Metformin HCl (Glucophage) 500 mg BIDWMEALS PO Last administered on 01/22/21 07:51; Start 01/21/21 at 08:00 Nitroglycerin (Nitrostat) 0.4 mg PRN Q5MIN PRN SL CHEST PAIN; Start 01/20/21 at 21:30 Gabapentin (Neurontin) 300 mg BID PO Last administered on 01/22/21 07:52; Start 01/20/21 at 22:00 Cetirizine HCl (ZyrTEC) 10 mg DAILY PO Last administered on 01/22/21 07:54; Start 01/21/21 at 09:00 Atorvastatin Calcium (Lipitor) 10 mg QHS PO Last administered on 01/21/21at 21:18; Start 01/20/21 at 22:00 Non-Formulary Medication (Multivits-Min/ Iron/FA/Lutein (Centrum Silver Women Tablet)) 1 each DAILY PO ; Start 01/21/21 at 09:00; Status UNV Labetalol HCl (Normodyne Iv Push) 20 mg PRN Q2HR PRN IVP HYPERTENSION; Start 01/22/21 at 06:45 Active Scripts Active Reported Cinnamon (Cinnamon Bark) 500 Mg Capsule 2,000 Mg PO BID Cranberry (Cranberry Extract) 250 Mg Capsule 1 Cap PO BID 30 Days [avenova] Voltaren (Diclofenac Sodium) 100 Gm Gel..gram. 1 Gm TP QID PRN 30 Days apply to affected area(s) Gabapentin 600 Mg Tablet 300 Mg PO BID Cymbalta (Duloxetine Hcl) 30 Mg Capsule.dr 1 Cap PO DAILY Nitrostat (Nitroglycerin) 0.4 Mg Tab.subl 0.4 Mg SL PRN Q5MIN PRN Calcium 600+D Plus Minerals Tb (Calcium Carb/Vit D3/Minerals) 1 Each Tablet 2 Tab PO BID 30 Days Centrum Silver Women Tablet (Multivits-Min/Iron/FA/Lutein) 1 Each Tablet 1 Each PO DAILY Fluticasone Propionate Nasal [place] (Fluticasone Propionate) 16 Gm [place].susp 2 [place] NS DAILY Loratadine 10 Mg Tablet 1 Tab PO DAILY Lisinopril 40 Mg Tablet 1 Tab PO DAILY Lovastatin 40 Mg Tablet 40 Mg PO HS Metformin Hcl 500 Mg Tablet 500 Mg PO BIDWMEALS PRN Glipizide 5 Mg Tablet 1 Tab PO BID Clopidogrel (Clopidogrel Bisulfate) 75 Mg Tablet 1 Tab PO DAILY Vitals/I & O Vital Sign - Last 24 Hours 01/21/21 01/21/21 01/21/21 01/21/21 09:29 09:30 11:00 15:00 Temp 97.6 96.9 97.6 96.9 Pulse 83 73 60 70 Resp 18 20 B/P (MAP) 198/100 163/70 (101) 158/77 (104) 156/75 (102) Pulse Ox 98 96 O2 Delivery Room Air Room Air 01/21/21 01/21/21 01/21/21 01/22/21 19:00 20:20 23:03 03:00 Temp 98.0 98.4 97.2 98.0 98.4 97.2 Pulse 73 77 75 Resp 18 20 18 B/P (MAP) 179/97 (124) 185/90 (121) 208/97 (134) Pulse Ox 97 98 97 O2 Delivery Room Air Room Air Room Air Room Air 01/22/21 01/22/21 05:41 07:00 Temp 97.8 97.8 Pulse 70 Resp 20 18 B/P (MAP) 217/98 (137) Pulse Ox 99 O2 Delivery Nasal Cannula Nasal Cannula O2 Flow Rate 2.0 Intake and Output 01/21/21 01/21/21 01/22/21 15:00 23:00 07:00 Intake Total 240 ml 200 ml Balance 240 ml 200 ml Justicifation of Admission Dx: Justifications for Admission: Justification of Admission Dx: Yes JACQUIE MISTRY MD Jan 22, 2021 08:37
[2021-01-22] MEDS: FLUTICASONE 50MCG/NASAL SPRAY 16GM BOTTLE. NS SCH (09:00)
[2021-01-22 09:28] VITALS: BP 170/94
[2021-01-22] MEDS: LISINOPRIL 20 MG TABLET PO SCH (09:28)
[2021-01-22] MEDS ORDERED: ENOX40DI3 SQ (11:27)
[2021-01-22] MEDS ORDERED: DOCU-153 PO (11:27)
[2021-01-22] MEDS ORDERED: ZINC100T PO (11:27)
[2021-01-22] MEDS ORDERED: PRED-220 PO (11:27)
[2021-01-22] MEDS ORDERED: DOXY100T PO (11:27)
[2021-01-22] MEDS ORDERED: ASPI-630 PO (11:27)
[2021-01-22] MEDS ORDERED: GUAI120L35 PO (11:27)
--- NOTE | 2021-01-22 11:38 | NUR ---
SW following for discharge planning. Spoke with RN and reviewed chart. Pt to discharge to [facility] today, 01/22. Pt on room air and oral medications. SW waiting on discharge orders. Clinicals ready to be sent with pt. RN to call report. Transportation arranged for 1300. SW following. Addendum: 01/22/21 at 1152 by RADHA WHITE Discharge orders phoned and faxed. No further SW needs at this time.
--- NOTE | 2021-01-22 11:46 | SNU/HH DC ---
DISCHARGE ORDERS DISCHARGE INFORMATION: DISCHARGE DATE: Jan 22, 2021 FINAL DIAGNOSIS COVID 19 pneumonia Problems Medical Problems: (1) COVID-19 Status: Acute (2) Diarrhea Status: Acute (3) Headache Status: Acute (4) Nausea and vomiting Status: Acute CONDITION ON DISCHARGE: Stable CODE STATUS: Code Status: DNR/DNI LONG TERM: SNF STAY <30 DAYS: Yes POST DISCHARGE ORDERS: ACTIVITY ORDERS: No restrictions, Resume previous activity, Activity as tolerated WEIGHT BEARING STATUS: No restrictions, As tolerated DIET AFTER DISCHARGE: ADA FOLLOW-UP: PHYSICIAN FOLLOW-UP: primary care TREATMENT/EQUIPMENT ORDERS: ADAPTIVE EQUIPMENT NEEDED: Front wheeled walker Physical Therapy For: Evalulation/Treatment Occupational Therapy For: Evaluation/Treatment DISCHARGE MEDICATIONS: Home Meds Active Scripts Zinc Gluconate (ZINC GLUCONATE) 100 Mg Tablet, 1 TAB PO DAILY for COVID for 30 Days, #15 TAB 0 Refills Prov:JACQUIE MISTRY MD 01/22/21 Prednisone (PREDNISONE ) 10 Mg Tablet, 10 MG PO UD for covid, #30 TAB 0 Refills Take 5 tablets by mouth daily for 2 days, then take 4 tablets by mouth daily for 2 days, then take 3 tablets by mouth daily for 2 days, then take 2 tablets by mouth daily for 2 days, then take 1 tablets by mouth daily for 2 days, then stop. Prov:JACQUIE MISTRY MD 01/22/21 Guaifenesin/Codeine Phosphate (Codeine-Guaifen 10-100 mg/5 ml) 120 Ml Liquid, 5 ML PO PRN Q6HRS PRN for COUGH, #60 LIQUID Prov:JACQUIE MISTRY MD 01/22/21 Docusate Sodium (DOK) 100 Mg Capsule, 100 MG PO PRN DAILY PRN for HARD STOOLS, #30 CAP Prov:JACQUIE MISTRY MD 01/22/21 Aspirin (ASPIRIN) 81 Mg Tab.chew, 81 MG PO DAILYWBKFT for cardiac, #30 TAB.CHEW Prov:JACQUIE MISTRY MD 01/22/21 Enoxaparin Sodium (ENOXAPARIN SODIUM) 40 Mg/0.4 Ml Disp.syrin, 40 MG SQ Q24H for COVID, #3 DIS.SYR Prov:JACQUIE MISTRY MD 01/22/21 Doxycycline Hyclate (DOXYCYCLINE HYCLATE) 100 Mg Tablet, 100 MG PO BID for pneumonia, #14 TAB Prov:JACQUIE MISTRY MD 01/22/21 Reported Medications Cinnamon Bark (CINNAMON) 500 Mg Capsule, 2000 MG PO BID for supplement, CAP 01/20/21 Cranberry Extract (CRANBERRY) 250 Mg Capsule, 1 CAP PO BID for supplement for 30 Days, #60 CAP 0 Refills 01/20/21 [avenova] No Conflict Check 01/20/21 Diclofenac Sodium (VOLTAREN) 100 Gm Gel..gram., 1 GM TP QID PRN for PAIN for 30 Days, #1 EACH 0 Refills apply to affected area(s) 01/20/21 Gabapentin (GABAPENTIN) 600 Mg Tablet, 300 MG PO BID for NEUROGENIC PAIN, TAB 01/20/21 Duloxetine Hcl (CYMBALTA) 30 Mg Capsule.dr, 1 CAP PO DAILY for pain, #30 CAP 5 Refills 01/20/21 Nitroglycerin (NITROSTAT) 0.4 Mg Tab.subl, 0.4 MG SL PRN Q5MIN PRN for CHEST PAIN, ML 01/20/21 Calcium Carb/Vit D3/Minerals (CALCIUM 600+D PLUS MINERALS TB) 1 Each Tablet, 2 TAB PO BID for supplement for 30 Days, #120 TAB 0 Refills 01/20/21 Multivits-Min/Iron/FA/Lutein (Centrum Silver Women Tablet) 1 Each Tablet, 1 EACH PO DAILY for vitamin, TAB 01/20/21 Fluticasone Propionate (FLUTICASONE PROPIONATE NASAL SPRAY) 16 Gm [place].susp, 2 SPRAY NS DAILY for allergies, #1 INHALER 11 Refills 01/20/21 Loratadine (LORATADINE) 10 Mg Tablet, 1 TAB PO DAILY for allergies, #30 TAB 5 Refills 01/20/21 Lisinopril (LISINOPRIL) 40 Mg Tablet, 1 TAB PO DAILY for blood pressure, #30 TAB 5 Refills 01/20/21 Lovastatin (LOVASTATIN) 40 Mg Tablet, 40 MG PO HS for cholesterol, TAB 01/20/21 Metformin Hcl (METFORMIN HCL) 500 Mg Tablet, 500 MG PO BIDWMEALS PRN for glucose, TAB 0 Refills 01/20/21 Glipizide (GLIPIZIDE) 5 Mg Tablet, 1 TAB PO BID for glucose, #60 TAB 3 Refills 01/20/21 Clopidogrel Bisulfate (CLOPIDOGREL) 75 Mg Tablet, 1 TAB PO DAILY for blood thinner, #90 TAB 1 Refill 01/20/21 JACQUIE MISTRY MD Jan 22, 2021 11:46
--- NOTE | 2021-01-22 11:49 | PDOC3 ---
Discharge Summary Visit Information Date of Admission: Jan 19, 2021 Date of Discharge: Jan 22, 2021 Final Diagnosis acute COVID-19 with progression of disease with headache, nausea, vomiting, diarrhea, and cough. Vitals Problems Medical Problems: (1) COVID-19 Status: Acute (2) Diarrhea Status: Acute (3) Headache Status: Acute (4) Nausea and vomiting Status: Acute Brief Hospital Course Allergies Allergies Coded Allergies Type Severity Reaction Last Updated Verified No Known Drug Allergies 03/26/16 No Vital Signs Vital Signs Date Time Temp Pulse Resp B/P (MAP) Pulse Ox O2 Delivery O2 Flow Rate FiO2 01/22/21 09:28 68 170/94 01/22/21 08:00 Room Air 01/22/21 07:00 97.8 18 99 2.0 97.8 Lab Results Laboratory Tests Test 01/20/21 16:51 01/20/21 20:10 01/21/21 07:07 01/21/21 10:39 Glucose (Fingerstick) 228 mg/dL (70-99) 274 mg/dL (70-99) 219 mg/dL (70-99) 254 mg/dL (70-99) Test 01/21/21 16:39 01/21/21 19:07 01/22/21 07:08 Glucose (Fingerstick) 132 mg/dL (70-99) 195 mg/dL (70-99) 156 mg/dL (70-99) Laboratory Tests Test 01/21/21 16:39 01/21/21 19:07 01/22/21 07:08 Glucose (Fingerstick) 132 mg/dL (70-99) 195 mg/dL (70-99) 156 mg/dL (70-99) Brief Hospital Course Ms. Ruiz is a 75 old female, with DM2, obese, admit for cough, dyspnea, weakness, COVID still with weakness and, headache, acute COVID symptoms cont the COVID protocol including steroids, antibiotics plan skilled at COVID unit Discharge Information Condition at Discharge: Improved Follow Up: Weeks Disposition/Orders: D/C to Another Facility Scheduled Aspirin (Aspirin) 81 Mg Tab.chew, 81 MG PO DAILYWBKFT for cardiac, #30 Prescribed by: JACQUIE MISTRY on 01/22/21 1127 Calcium Carb/Vit D3/Minerals (Calcium 600+D Plus Minerals Tb) 1 Each Tablet, 2 TAB PO BID for supplement for 30 Days, #120 Ref 0 (Reported) Entered as Reported by: Rg Lau on 01/20/21215 Last Action: New Order on 01/20/21215 by Rg Lau Cinnamon Bark (Cinnamon) 500 Mg Capsule, 2,000 MG PO BID for supplement, (Reported) Entered as Reported by: Rg Lau on 01/20/21220 Last Action: New Order on 01/20/21220 by Rg Lau Clopidogrel Bisulfate (Clopidogrel) 75 Mg Tablet, 1 TAB PO DAILY for blood thinner, #90 Ref 1 (Reported) Entered as Reported by: Rg Lau on 01/20/2146 Last Action: Continued on 01/20/212130 by Rg Lau Cranberry Extract (Cranberry) 250 Mg Capsule, 1 CAP PO BID for supplement for 30 Days, #60 Ref 0 (Reported) Entered as Reported by: Rg Lau on 01/20/21220 Last Action: New Order on 01/20/21220 by Rg Lau Doxycycline Hyclate (Doxycycline Hyclate) 100 Mg Tablet, 100 MG PO BID for pneumonia, #14 Prescribed by: JACQUIE MISTRY on 01/22/211126 Duloxetine Hcl (Cymbalta) 30 Mg Capsule.dr, 1 CAP PO DAILY for pain, #30 Ref 5 (Reported) Entered as Reported by: Rg Lau on 01/20/21215 Last Action: Continued on 01/20/212130 by Rg Lau Enoxaparin Sodium (Enoxaparin Sodium) 40 Mg/0.4 Ml Disp.syrin, 40 MG SQ Q24H for COVID, #3 Prescribed by: JACQUIE MISTRY on 01/22/211126 Fluticasone Propionate (Fluticasone Propionate Nasal [place]) 16 Gm [place].susp, 2 SPRAY NS DAILY for allergies, #1 Ref 11 (Reported) Entered as Reported by: Rg Lau on 01/20/21215 Last Action: Continued on 01/20/212130 by Rg Lau Gabapentin (Gabapentin) 600 Mg Tablet, 300 MG PO BID for NEUROGENIC PAIN, (Reported) Entered as Reported by: Rg Lau on 01/20/21216 Last Action: Converted on 01/20/212130 by Rg Lau Glipizide (Glipizide) 5 Mg Tablet, 1 TAB PO BID for glucose, #60 Ref 3 (Reported) Entered as Reported by: Rg Lau on 01/20/2146 Last Action: Continued on 01/20/212130 by Rg Lau Lisinopril (Lisinopril) 40 Mg Tablet, 1 TAB PO DAILY for blood pressure, #30 Ref 5 (Reported) Entered as Reported by: Rg Lau on 01/20/21215 Last Action: Continued on 01/20/212130 by Rg Lau Loratadine (Loratadine) 10 Mg Tablet, 1 TAB PO DAILY for allergies, #30 Ref 5 ( Reported) Entered as Reported by: Rg Lau on 01/20/21215 Last Action: Converted on 01/20/212130 by Rg Lau Lovastatin (Lovastatin) 40 Mg Tablet, 40 MG PO HS for cholesterol, (Reported) Entered as Reported by: Rg Lau on 01/20/21215 Last Action: Converted on 01/20/212130 by Rg Lau Multivits-Min/Iron/FA/Lutein (Centrum Silver Women Tablet) 1 Each Tablet, 1 EACH PO DAILY for vitamin, (Reported) Entered as Reported by: Rg Lau on 01/20/21215 Last Action: Converted on 01/20/212130 by Rg Lau Prednisone (Prednisone ) 10 Mg Tablet, 10 MG PO UD for covid, #30 Ref 0 Take 5 tablets by mouth daily for 2 days, then take 4 tablets by mouth daily for 2 days, then take 3 tablets by mouth daily for 2 days, then take 2 tablets by mouth daily for 2 days, then take 1 tablets by mouth daily for 2 days, then stop. Prescribed by: JACQUIE MISTRY on 01/22/211126 Zinc Gluconate (Zinc Gluconate) 100 Mg Tablet, 1 TAB PO DAILY for COVID for 30 Days, #15 Ref 0 Prescribed by: JACQUIE MISTRY on 01/22/211126 Scheduled PRN Diclofenac Sodium (Voltaren) 100 Gm Gel..gram., 1 GM TP QID PRN for PAIN for 30 Days, #1 Ref 0 (Reported) apply to affected area(s) Entered as Reported by: Rg Lau on 01/20/21216 Last Action: Continued on 01/20/212130 by Rg Lau Docusate Sodium (Dok) 100 Mg Capsule, 100 MG PO PRN DAILY PRN for HARD STOOLS, #30 Prescribed by: JACQUIE MISTRY on 01/22/211126 Guaifenesin/Codeine Phosphate (Codeine-Guaifen 10-100 mg/5 ml) 120 Ml Liquid, 5 ML PO PRN Q6HRS PRN for COUGH, #60 Prescribed by: JACQUIE MISTRY on 01/22/217 Metformin Hcl (Metformin Hcl) 500 Mg Tablet, 500 MG PO BIDWMEALS PRN for glucose, Ref 0 (Reported) Entered as Reported by: Rg Lau on 01/20/2146 Last Action: Continued on 01/20/212130 by Rg Lau Nitroglycerin (Nitrostat) 0.4 Mg Tab.subl, 0.4 MG SL PRN Q5MIN PRN for CHEST PAIN, (Reported) Entered as Reported by: Rg Lau on 01/20/21215 Last Action: Continued on 01/20/212130 by Rg Lau Miscellaneous Medications [avenova] , (Reported) Entered as Reported by: Rg Lau on 01/20/21216 Last Action: New Order on 01/20/21216 by Rg Lau Patient Instructions Patient Instructions pt seen and examined, cont abx and steroids, needs pT and OT time > 30 minues Justicifation of Admission Dx: Justifications for Admission: Justification of Admission Dx: Yes JACQUIE MISTRY MD Jan 22, 2021 11:49
[2021-01-22] MEDS ORDERED: ZINC SULFATE 220 MG CAPSULE. PO SCH (12:00)
[2021-01-22] MEDS ORDERED: ASCORBIC ACID 500 MG TABLET PO SCH (12:00)
--- NOTE | 2021-01-22 13:39 | NUR ---
Discharge Note: RAVI RADER [address] Discharge instructions and discharge home medications reviewed with Rosalino MCKINNEY of [facility] and a copy given to the transport personnel. All questions have been answered and understanding verbalized. The following instructions and handouts were given: Take home meds as directed. To complete doxycycline doses. COVID precautions. Watch out for severe dyspnea, severe weakness or worsening symptoms. FF up with PCP in weeks. Discontinued lines and drains: peripheral IV intact, patient tolerated removal, no complications noted. Patient discharged to [facility] at 1310 via wheelchair on room air accompanied by the transport personnel.
== END 2021-01-22 13:10 | DRG 178 ==
LOC: ER 19:33 → 6 SOUTH 20:44 → OBSVTOIN 01-20 12:48
PROVIDERS: ADMIT Internal Medicine; ATTEND Internal Medicine
DX: U07.1 COVID-19 (principal); E87.1 Hypo-osmolality and hyponatremia; E11.9 Type 2 diabetes mellitus without complications; E78.5 Hyperlipidemia, unspecified; I10 Essential (primary) hypertension; I25.10 Atherosclerotic heart disease of native coronary artery without angina pectoris; Z83.3 Family history of diabetes mellitus; Z86.73 Personal history of transient ischemic attack (TIA), and cerebral infarction without residual deficits; Z90.710 Acquired absence of both cervix and uterus; E66.9 Obesity, unspecified; Z90.49 Acquired absence of other specified parts of digestive tract; Z68.33 Body mass index [BMI] 33.0-33.9, adult
CPT/HCPCS: 36415; 71045; 80048; 80053; 82962; 83735; 84100; 84484; 85025; 93005; 96361; 96374; 96375; 99285; C9113; G0378; G0379; J0696; J1100; J1650; J2405; J2920; J3475; J3490; J7030; 97116-GP; 97530-GP; 97535-GO

== ENCOUNTER 2022-04-02 11:30 | Observation (INO) | payer MEDICARE ==
[~2022-04-02] VITALS: Ht 157.5 cm; Wt 79.6 kg
[~2022-04-02 11:30] MED LIST: ASPI-630 PO; AVENOVA; CALC-58 PO; CINN500C2 PO; CLOP75TA PO; CRAN250C PO; DICL100G54 TP; DOCU-148 PO; DOXY100T PO; DULO30CA2 PO; ENOX40DI3 SQ; FLUT16SP NS; GABA600T7 PO; GLIP5TAB10 PO; GUAI120L35 PO; LISI-130 PO; LORA10TA3 PO; LOVA40TA2 PO; METF500T16 PO; MULT-650 PO; NITR0.4T24 SL; PRED-220 PO; ZINC100T PO
[2022-04-02] MEDS ORDERED: IV NORMAL SALINE 500ML BAG 500 ML IV ONE (11:45)
--- NOTE | 2022-04-02 12:00 | RAD ---
EXAM: Chest, single view. HISTORY: Shortness of breath. COMPARISON: 01/19/2021 FINDINGS: A frontal view of the chest is obtained. There is no infiltrate, pleural effusion or pneumo thorax. The heart is normal in size. There is linear atelectasis within the left mid thorax. IMPRESSION: No acute pulmonary finding. Electronically signed by: Barbara Cramer MD (04/02/2022 11:58 AM) [id number]
[2022-04-02 12:29] LABS: BASO % 0 % (0-3); EOS # 0.4 x10^3/uL (0.0-0.7); EOS % 5 % (0-3); HEMATOCRIT 41.9 % (36.0-47.0); HEMOGLOBIN 14.3 g/dL (12.0-15.5); LYMPH # 1.7 x10^3/uL (1.0-4.8); LYMPH % 19 % (24-48); MEAN CORPUSCULAR HEMOGLOBIN 30 pg (25-35); MEAN CORPUSCULAR HGB CONC 34 g/dL (31-37); MEAN CORPUSCULAR VOLUME 89 fL (79-100); MONO # 0.5 x10^3/uL (0.0-1.1); MONO % 5 % (0-9); NEUT # 6.2 x10^3/uL (1.8-7.7); NEUT % 70 % (31-73); PLATELET COUNT 228 x10^3/uL (140-400); RED BLOOD COUNT 4.71 x10^6/uL (3.50-5.40); RED CELL DISTRIBUTION WIDTH 13.1 % (11.5-14.5); WHITE BLOOD COUNT 8.9 x10^3/uL (4.0-11.0)
[2022-04-02 12:37] LABS: CALCIUM 9.8 mg/dL (8.5-10.1); CREATININE 1.7 mg/dL (0.6-1.0); GFR 29.1; POTASSIUM 4.4 mmol/L (3.5-5.1)
[2022-04-02 12:44] LABS: ALBUMIN 3.1 g/dL (3.4-5.0); ALBUMIN/GLOBULIN RATIO 0.9 (1.0-1.7); TOTAL BILIRUBIN 0.5 mg/dL (0.2-1.0); TOTAL PROTEIN 6.5 g/dL (6.4-8.2)
[2022-04-02 14:38] LABS: CALCIUM 9.1 mg/dL (8.5-10.1); CREATININE 1.5 mg/dL (0.6-1.0); GFR 33.7; POTASSIUM 4.5 mmol/L (3.5-5.1)
[2022-04-02] MEDS ORDERED: CETIRIZINE HCL 10 MG TABLET. PO ONE (15:00)
--- NOTE | 2022-04-02 15:36 | PHYS DOC ---
Past Medical History Past Medical History: CAD, CVA, Diabetes-Type II, Hypertension Past Surgical History: No Surgical History, Cholecystectomy, , Hysterectomy, Tonsillectomy Smoking Status: Never Smoker Alcohol Use: None Drug Use: None General Adult EDM: Chief Complaint: SHORTNESS OF BREATH HPI: HPI: Patient is a 76 year old female who presents with 4 to 5 days of weakness, shortness of breath, and hives. Patient states that she has no new exposure to allergies. Patient was seen by primary care physician today who transferred the patient here for further evaluation. Patient has no other complaints, vitals are stable. Patient states that she feels very weak and has some shortness of breath as well. Review of Systems: Review of Systems: Constitutional: Denies fever or chills. [] Eyes: Denies change in visual acuity. [] HENT: Denies nasal congestion or sore throat. [] Respiratory: Denies cough positive shortness of breath. [] Cardiovascular: Denies chest pain or edema. [] GI: Denies abdominal pain, nausea, vomiting, bloody stools or diarrhea. [] : Denies dysuria. [] Musculoskeletal: Denies back pain or joint pain. [] Integument: Denies rash. [] Neurologic: Denies headache, focal weakness or sensory changes. [] Endocrine: Denies polyuria or polydipsia. [] Lymphatic: Denies swollen glands. [] Psychiatric: Denies depression or anxiety. [] Heart Score: C/O Chest Pain: No Risk Factors: Risk Factors: DM, Current or recent (<one month) smoker, HTN, HLP, family history of CAD, obesity. Risk Scores: Score 0 - 3: 2.5% MACE over next 6 weeks - Discharge Home Score 4 - 6: 20.3% MACE over next 6 weeks - Admit for Clinical Observation Score 7 - 10: 72.7% MACE over next 6 weeks - Early Invasive Strategies Current Medications: Current Medications Medications (Trade) Dose Ordered Sig/Nohemi Start Time Stop Time Status Last Admin Dose Admin Cetirizine HCl (ZyrTEC) 10 mg 1X ONCE 04/02/22 15:00 04/02/22 15:01 DC 04/02/22 15:00 10 MG Sodium Chloride 500 ml @ 500 mls/hr 1X ONCE 04/02/22 11:45 04/02/22 12:44 DC 04/02/22 12:30 500 MLS/HR Allergies: Allergies: Allergies Coded Allergies Type Severity Reaction Last Updated Verified No Known Drug Allergies 03/26/16 No Physical Exam: PE: Constitutional: Well developed, well nourished, no acute distress, non-toxic appearance. [] HENT: Normocephalic, atraumatic, bilateral external ears normal, oropharynx moist, no oral exudates, nose normal. [] Eyes: PERRLA, EOMI, conjunctiva normal, no discharge. [] Neck: Normal range of motion, no tenderness, supple, no stridor. [] Cardiovascular:Heart rate regular rhythm, no murmur [] Lungs & Thorax: Bilateral breath sounds clear to auscultation [] Abdomen: Bowel sounds normal, soft, no tenderness, no masses, no pulsatile masses. [] Skin: Warm, dry, no erythema, no rash. [] Back: No tenderness, no CVA tenderness. [] Extremities: No tenderness, no cyanosis, no clubbing, ROM intact, no edema. [] Neurologic: Alert and oriented X 3, normal motor function, normal sensory function, no focal deficits noted. [] Psychologic: Affect normal, judgement normal, mood normal. [] Current Patient Data: Labs: Laboratory Tests Test 04/02/22 12:15 04/02/22 14:20 White Blood Count 8.9 x10^3/uL (4.0-11.0) Red Blood Count 4.71 x10^6/uL (3.50-5.40) Hemoglobin 14.3 g/dL (12.0-15.5) Hematocrit 41.9 % (36.0-47.0) Mean Corpuscular Volume 89 fL (79-100) Mean Corpuscular Hemoglobin 30 pg (25-35) Mean Corpuscular Hemoglobin Concent 34 g/dL (31-37) Red Cell Distribution Width 13.1 % (11.5-14.5) Platelet Count 228 x10^3/uL (140-400) Neutrophils (%) (Auto) 70 % (31-73) Lymphocytes (%) (Auto) 19 % (24-48) L Monocytes (%) (Auto) 5 % (0-9) Eosinophils (%) (Auto) 5 % (0-3) H Basophils (%) (Auto) 0 % (0-3) Neutrophils # (Auto) 6.2 x10^3/uL (1.8-7.7) Lymphocytes # (Auto) 1.7 x10^3/uL (1.0-4.8) Monocytes # (Auto) 0.5 x10^3/uL (0.0-1.1) Eosinophils # (Auto) 0.4 x10^3/uL (0.0-0.7) Basophils # (Auto) 0.0 x10^3/uL (0.0-0.2) D-Dimer (Swati) 1.12 ug/mlFEU (0.00-0.50) H Sodium Level 135 mmol/L (136-145) L 136 mmol/L (136-145) Potassium Level 4.4 mmol/L (3.5-5.1) 4.5 mmol/L (3.5-5.1) Chloride Level 99 mmol/L (98-107) 103 mmol/L (98-107) Carbon Dioxide Level 22 mmol/L (21-32) 24 mmol/L (21-32) Anion Gap 14 (6-14) 9 (6-14) Blood Urea Nitrogen 45 mg/dL (7-20) H 41 mg/dL (7-20) H Creatinine 1.7 mg/dL (0.6-1.0) H 1.5 mg/dL (0.6-1.0) H Estimated GFR (Cockcroft-Gault) 29.1 33.7 BUN/Creatinine Ratio 26 (6-20) H Glucose Level 177 mg/dL (70-99) H 128 mg/dL (70-99) H Lactic Acid Level 2.6 mmol/L (0.4-2.0) H Calcium Level 9.8 mg/dL (8.5-10.1) 9.1 mg/dL (8.5-10.1) Total Bilirubin 0.5 mg/dL (0.2-1.0) Aspartate Amino Transferase (AST) 18 U/L (15-37) Alanine Aminotransferase (ALT) 19 U/L (14-59) Alkaline Phosphatase 73 U/L (46-116) Troponin I High Sensitivity 7 ng/L (4-50) Total Protein 6.5 g/dL (6.4-8.2) Albumin 3.1 g/dL (3.4-5.0) L Albumin/Globulin Ratio 0.9 (1.0-1.7) L Laboratory Tests 04/02/22 12:15 Laboratory Tests 04/02/22 12:15 04/02/22 14:20 Vital Signs: Vital Signs Date Time Temp Pulse Resp B/P (MAP) Pulse Ox O2 Delivery O2 Flow Rate FiO2 04/02/22 13:40 76 139/86 (103) 97 Room Air 04/02/22 11:45 97.5 18 97.5 EKG: EKG: [] Radiology/Procedures: Radiology/Procedures: Chest x-ray no acute findings Impression: Acute on chronic kidney injury, shortness of breath and weakness, hives, deh ydration Course & Med Decision Making: Course & Med Decision Making Pertinent Labs and Imaging studies reviewed. (See chart for details) Seen and evaluated by myself, 76-year-old female with weakness, hives, shortness of breath. Chest x-ray within normal limits. Lactate as well as creatinine elevated. Patient given 1 L normal saline bolus. D-dimer also elevated. Unable to perform CT angio of the chest due to elevated creatinine. Unable to perform VQ scan due to hospital policy of negative COVID PCR required. Creatinine improved with 1 L normal saline bolus. Patient stated she felt a little bit better after fluid administration. Unable to rule out pulmonary embolus along with patient's weakness and shortness of breath. Patient was admitted to the service of Dr. rCaig. Who accepts the admission. Kel Disclaimer: Kel Disclaimer: This electronic medical record was generated, in whole or in part, using a voice recognition dictation system. Departure Departure Impression: Primary Impression: Weakness Additional Impression: Shortness of breath Disposition: ADMITTED INPATIENT Condition: GOOD FLIP TURK MD April 02, 2022 15:36
--- NOTE | 2022-04-02 17:15 | PDOC1 ---
History and Physical Date of Service: DOS: DATE: 04/02/22 TIME: 17:13 Chief Complaint: Chief Complain: Weakness and shortness of breath History of Present Illness: HPI: 76-year-old female with past medical history of CAD, CVA, diabetes mellitus type 2, hypertension, CKD unknown stage who comes in with generalized weakness and dyspnea upon exertion and hives. Symptoms started on Thursday when she broke out into hives throughout her whole body. She has never had an incident like this before and therefore she started taking Benadryl. She states she took the Benadryl every 4 hour for her rash. Subsequently, she started having dry heaves because she was nauseous. Denies any vomiting episodes. Patient felt more weak as the days went on but she tried to eat something. She was able to keep down her food but she still had dry heaves and was feeling nauseous. Denies any diarrhea or abdominal pain or fevers. Patient did complain of chills. Her rash did somewhat improved but she still took the Benadryl because she was having ir ritation from the itchiness. No open lesions or wounds. Patient is a fairly good historian and she noted that she stopped taking her medications ever since Thursday when she was not feeling too good. Patient is compliant with all her medications. She remembers her last A1c was roughly about a month and a half ago and it was 7 Past Medical/Surgical History: PMH/PSH: Past Medical History: CAD, CVA, Diabetes-Type II, Hypertension Past Surgical History: No Surgical History, Cholecystectomy, , Hysterectomy, Tonsillectomy Allergies: Allergies: Coded Allergies: No Known Drug Allergies (Unverified , 03/26/16) Family History: Family History: Reviewed with no relative findings in the chart Social History: Social History: Smoking Status: Never Smoker Alcohol Use: None Drug Use: None Current Medications: Current Medications Current Medications Sodium Chloride 500 ml @ 500 mls/hr 1X ONCE IV Last administered on 04/02/22at 12:30; Start 04/02/22 at 11:45; Stop 04/02/22 at 12:44; Status DC Cetirizine HCl (ZyrTEC) 10 mg 1X ONCE PO Last administered on 04/02/22at 15:00; Start 04/02/22 at 15:00; Stop 04/02/22 at 15:01; Status DC Active Scripts Active Zinc Gluconate 100 Mg Tablet 1 Tab PO DAILY 30 Days Prednisone (Prednisone) 10 Mg Tablet 10 Mg PO UD Take 5 tablets by mouth daily for 2 days, then take 4 tablets by mouth daily for 2 days, then take 3 tablets by mouth daily for 2 days, then take 2 tablets by mouth daily for 2 days, then take 1 tablets by mouth daily for 2 days, then stop. Codeine-Guaifen 10-100 mg/5 ml (Guaifenesin/Codeine Phosphate) 120 Ml Liquid 5 Ml PO PRN Q6HRS PRN Dok (Docusate Sodium) 100 Mg Capsule 100 Mg PO PRN DAILY PRN Aspirin 81 Mg Tab.chew 81 Mg PO DAILYWBKFT Enoxaparin Sodium 40 Mg/0.4 Ml Disp.syrin 40 Mg SQ Q24H Doxycycline Hyclate 100 Mg Tablet 100 Mg PO BID Reported Cinnamon (Cinnamon Bark) 500 Mg Capsule 2,000 Mg PO BID Cranberry (Cranberry Extract) 250 Mg Capsule 1 Cap PO BID 30 Days [avenova] Voltaren (Diclofenac Sodium) 100 Gm Gel..gram. 1 Gm TP QID PRN 30 Days apply to affected area(s) Gabapentin 600 Mg Tablet 300 Mg PO BID Cymbalta (Duloxetine Hcl) 30 Mg Capsule.dr 1 Cap PO DAILY Nitrostat (Nitroglycerin) 0.4 Mg Tab.subl 0.4 Mg SL PRN Q5MIN PRN Calcium 600+D Plus Minerals Tb (Calcium Carb/Vit D3/Minerals) 1 Each Tablet 2 Tab PO BID 30 Days Centrum Silver Women Tablet (Multivits-Min/Iron/FA/Lutein) 1 Each Tablet 1 Each PO DAILY Fluticasone Propionate Nasal [place] (Fluticasone Propionate) 16 Gm [place].susp 2 [place] NS DAILY Loratadine 10 Mg Tablet 1 Tab PO DAILY Lisinopril 40 Mg Tablet 1 Tab PO DAILY Lovastatin 40 Mg Tablet 40 Mg PO HS Metformin Hcl 500 Mg Tablet 500 Mg PO BIDWMEALS PRN Glipizide 5 Mg Tablet 1 Tab PO BID Clopidogrel (Clopidogrel Bisulfate) 75 Mg Tablet 1 Tab PO DAILY ROS: Review of Systems Review of System REVIEW OF SYSTEMS: GENERAL: Positive for weakness SKIN: Hives EYES: No blurred, double or loss of vision. NOSE AND THROAT: No history of nosebleeds, hoarseness or sore throat. HEART: No history of palpitations, chest pain or shortness of breath on exertion. LUNGS: Positive for shortness of breath GASTROINTESTINAL: Denies changes in appetite, nausea, vomiting, diarrhea or constipation. GENITOURINARY: No history of frequency, urgency, hesitancy or nocturia. NEUROLOGIC: Denies history of numbness, tingling, or tremor. PSYCHIATRIC: No history of panic, anxiety or depression. ENDOCRINE: No history of heat or cold intolerance, polyuria or polydipsia. EXTREMITIES: Denies joint pain, pain on walking or stiffness. Physical Exam: Vital Signs: Vital Signs Date Time Temp Pulse Resp B/P (MAP) Pulse Ox O2 Delivery O2 Flow Rate FiO2 04/02/22 16:10 77 142/71 (94) 97 Room Air 04/02/22 11:45 97.5 18 97.5 Physcial Exam: General: Well developed, well nourished, no acute distress, well appearing HEENT: Pupils equally round and reactive to light, EOMI, no discharge, normal conjunctiva Neck: Supple, no nuchal rigidity, no JVD, trachea midline, no tenderness Cardiac: RRR, no murmurs, no gallops, no rubs Chest/Lungs: CTAB, no wheeze, no rhonchi, no crackles Abdomen: soft, non-distended, no guarding, no peritoneal signs, non-tender Back: No tenderness Extremities: no edema, pulses intact, non-tender,capillary refill <3 sec nilton ateral upper and lower extremities, Neuro: Alert and oriented x 4, no focal deficits, normal speech Labs: Labs: Laboratory Tests Test 04/02/22 12:15 04/02/22 14:20 04/02/22 15:10 04/02/22 15:25 White Blood Count 8.9 x10^3/uL (4.0-11.0) Red Blood Count 4.71 x10^6/uL (3.50-5.40) Hemoglobin 14.3 g/dL (12.0-15.5) Hematocrit 41.9 % (36.0-47.0) Mean Corpuscular Volume 89 fL (79-100) Mean Corpuscular Hemoglobin 30 pg (25-35) Mean Corpuscular Hemoglobin Concent 34 g/dL (31-37) Red Cell Distribution Width 13.1 % (11.5-14.5) Platelet Count 228 x10^3/uL (140-400) Neutrophils (%) (Auto) 70 % (31-73) Lymphocytes (%) (Auto) 19 % (24-48) Monocytes (%) (Auto) 5 % (0-9) Eosinophils (%) (Auto) 5 % (0-3) Basophils (%) (Auto) 0 % (0-3) Neutrophils # (Auto) 6.2 x10^3/uL (1.8-7.7) Lymphocytes # (Auto) 1.7 x10^3/uL (1.0-4.8) Monocytes # (Auto) 0.5 x10^3/uL (0.0-1.1) Eosinophils # (Auto) 0.4 x10^3/uL (0.0-0.7) Basophils # (Auto) 0.0 x10^3/uL (0.0-0.2) D-Dimer (Swati) 1.12 ug/mlFEU (0.00-0.50) Sodium Level 135 mmol/L (136-145) 136 mmol/L (136-145) Potassium Level 4.4 mmol/L (3.5-5.1) 4.5 mmol/L (3.5-5.1) Chloride Level 99 mmol/L (98-107) 103 mmol/L (98-107) Carbon Dioxide Level 22 mmol/L (21-32) 24 mmol/L (21-32) Anion Gap 14 (6-14) 9 (6-14) Blood Urea Nitrogen 45 mg/dL (7-20) 41 mg/dL (7-20) Creatinine 1.7 mg/dL (0.6-1.0) 1.5 mg/dL (0.6-1.0) Estimated GFR (Cockcroft-Gault) 29.1 33.7 BUN/Creatinine Ratio 26 (6-20) Glucose Level 177 mg/dL (70-99) 128 mg/dL (70-99) Lactic Acid Level 2.6 mmol/L (0.4-2.0) 1.0 mmol/L (0.4-2.0) Calcium Level 9.8 mg/dL (8.5-10.1) 9.1 mg/dL (8.5-10.1) Total Bilirubin 0.5 mg/dL (0.2-1.0) Aspartate Amino Transf (AST/SGOT) 18 U/L (15-37) Alanine Aminotransferase (ALT/SGPT) 19 U/L (14-59) Alkaline Phosphatase 73 U/L (46-116) Troponin I High Sensitivity 7 ng/L (4-50) Total Protein 6.5 g/dL (6.4-8.2) Albumin 3.1 g/dL (3.4-5.0) Albumin/Globulin Ratio 0.9 (1.0-1.7) SARS-CoV-2 Antigen (Rapid) Negative (NEGATIVE) Laboratory Tests Test 04/02/22 12:15 04/02/22 14:20 04/02/22 15:10 04/02/22 15:25 White Blood Count 8.9 x10^3/uL (4.0-11.0) Red Blood Count 4.71 x10^6/uL (3.50-5.40) Hemoglobin 14.3 g/dL (12.0-15.5) Hematocrit 41.9 % (36.0-47.0) Mean Corpuscular Volume 89 fL (79-100) Mean Corpuscular Hemoglobin 30 pg (25-35) Mean Corpuscular Hemoglobin Concent 34 g/dL (31-37) Red Cell Distribution Width 13.1 % (11.5-14.5) Platelet Count 228 x10^3/uL (140-400) Neutrophils (%) (Auto) 70 % (31-73) Lymphocytes (%) (Auto) 19 % (24-48) Monocytes (%) (Auto) 5 % (0-9) Eosinophils (%) (Auto) 5 % (0-3) Basophils (%) (Auto) 0 % (0-3) Neutrophils # (Auto) 6.2 x10^3/uL (1.8-7.7) Lymphocytes # (Auto) 1.7 x10^3/uL (1.0-4.8) Monocytes # (Auto) 0.5 x10^3/uL (0.0-1.1) Eosinophils # (Auto) 0.4 x10^3/uL (0.0-0.7) Basophils # (Auto) 0.0 x10^3/uL (0.0-0.2) D-Dimer (Swati) 1.12 ug/mlFEU (0.00-0.50) Sodium Level 135 mmol/L (136-145) 136 mmol/L (136-145) Potassium Level 4.4 mmol/L (3.5-5.1) 4.5 mmol/L (3.5-5.1) Chloride Level 99 mmol/L (98-107) 103 mmol/L (98-107) Carbon Dioxide Level 22 mmol/L (21-32) 24 mmol/L (21-32) Anion Gap 14 (6-14) 9 (6-14) Blood Urea Nitrogen 45 mg/dL (7-20) 41 mg/dL (7-20) Creatinine 1.7 mg/dL (0.6-1.0) 1.5 mg/dL (0.6-1.0) Estimated GFR (Cockcroft-Gault) 29.1 33.7 BUN/Creatinine Ratio 26 (6-20) Glucose Level 177 mg/dL (70-99) 128 mg/dL (70-99) Lactic Acid Level 2.6 mmol/L (0.4-2.0) 1.0 mmol/L (0.4-2.0) Calcium Level 9.8 mg/dL (8.5-10.1) 9.1 mg/dL (8.5-10.1) Total Bilirubin 0.5 mg/dL (0.2-1.0) Aspartate Amino Transf (AST/SGOT) 18 U/L (15-37) Alanine Aminotransferase (ALT/SGPT) 19 U/L (14-59) Alkaline Phosphatase 73 U/L (46-116) Troponin I High Sensitivity 7 ng/L (4-50) Total Protein 6.5 g/dL (6.4-8.2) Albumin 3.1 g/dL (3.4-5.0) Albumin/Globulin Ratio 0.9 (1.0-1.7) SARS-CoV-2 Antigen (Rapid) Negative (NEGATIVE) Images: Images PROCEDURE: PORTABLE CHEST 1V EXAM: Chest, single view. HISTORY: Shortness of breath. COMPARISON: 01/19/2021 FINDINGS: A frontal view of the chest is obtained. There is no infiltrate, pleural effusion or pneumothorax. The heart is normal in size. There is linear atelectasis within the left mid thorax. IMPRESSION: No acute pulmonary finding. Assessment/Plan Assessment/Plan Weakness and shortness of breath likely related to anticholinergic effects of diphenhydramine Acute on chronic kidney injury, possible vasomotor nephropathy Elevated D-dimer concerning for PE Hyperglycemia Urticaria likely related to seasonal allergies History of CAD History of diabetes mellitus type 2, hemoglobin A1c of 7 History of stroke Admit to hospitalist service for further management Pending's chest CTA versus VQ scan depending on kidney function Trend creatinine Strict I's/O and monitor urine output Avoid nephrotoxic agentswe will hold lisinopril and metformin Continue IV fluids R ISS and Accu-Cheks We will continue with Zyrtec and as needed Benadryl and as needed hydrocortisone cream to affected areas Lovenox for DVT prophylaxis ADA diet CODE STATUS full Discussed with RN and SW Disposition inpatient management as above DPOA: Daughter Justifications for Admission Other Justification COVID 19 infection GERONIMO FIGUEROA MD April 02, 2022 17:15
[2022-04-02] MEDS ORDERED: ZOLPIDEM 5 MG TABLET. PO PRN (18:15)
[2022-04-02] MEDS ORDERED: LORazepam 0.5 MG TABLET PO PRN (18:15)
[2022-04-02] MEDS ORDERED: HYDROCORTISONE 1% TOPICAL CREAM 30GM TUBE. TP PRN (18:15)
[2022-04-02] MEDS ORDERED: PROCHLORPERAZINE 10 MG/2 ML VIAL. IV PRN (18:15)
[2022-04-02] MEDS ORDERED: DOCUSATE SODIUM 100 MG CAPSULE. PO PRN ×2 (18:15)
[2022-04-02] MEDS ORDERED: SENNOSIDES 8.6 MG TABLET PO PRN (18:15)
[2022-04-02] MEDS ORDERED: ENOXAPARIN 30 MG/0.3 ML SYRINGE. SQ ONE (18:15)
[2022-04-02] MEDS ORDERED: diphenhydrAMINE HCL 25 MG CAPSULE PO PRN (18:15)
[2022-04-02] MEDS ORDERED: ACETAMINOPHEN 325 MG TABLET. PO PRN (18:15)
[2022-04-02] MEDS ORDERED: ONDANSETRON PF 4 MG/2 ML VIAL. IVP PRN (18:15)
[2022-04-02] MEDS ORDERED: DEXTROSE 50% 25 GM / 50ML DISP.SYRIN. IV PRN (18:15)
[2022-04-02 19:00] VITALS: BP 132/66
--- NOTE | 2022-04-02 19:04 | NUR ---
ER contacted re: PAT consult, HANK Nunez stated PAT team would be paged to call the floor.
--- NOTE | 2022-04-02 19:45 | EKG ---
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
[2022-04-02] MEDS: IV NORMAL SALINE 1000ML BAG 1,000 ML IV SCH (19:55)
[2022-04-02] MEDS: GABAPENTIN 300 MG CAPSULE. PO SCH (21:48)
[2022-04-02] MEDS: CETIRIZINE HCL 10 MG TABLET. PO SCH (21:48)
[2022-04-02] MEDS: diphenhydrAMINE 50 MG/ML VIAL IVP PRN (23:21)
[2022-04-02 23:33] VITALS: BP 156/83
--- NOTE | 2022-04-02 23:38 | NUR ---
Patient assisted to bathroom, shuffling her feet, she got dizzy, staff assisted patient up into wheelchair, back to bed, 'feel better', monitoring patient/also for suicide ideations
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
[2022-04-03 04:50] LABS: BASO % 0 % (0-3); EOS # 0.4 x10^3/uL (0.0-0.7); EOS % 6 % (0-3); HEMATOCRIT 41.3 % (36.0-47.0); HEMOGLOBIN 13.7 g/dL (12.0-15.5); LYMPH # 1.9 x10^3/uL (1.0-4.8); LYMPH % 29 % (24-48); MEAN CORPUSCULAR HEMOGLOBIN 30 pg (25-35); MEAN CORPUSCULAR HGB CONC 33 g/dL (31-37); MEAN CORPUSCULAR VOLUME 90 fL (79-100); MONO # 0.3 x10^3/uL (0.0-1.1); MONO % 5 % (0-9); NEUT # 4.1 x10^3/uL (1.8-7.7); NEUT % 61 % (31-73); PLATELET COUNT 223 x10^3/uL (140-400); RED BLOOD COUNT 4.58 x10^6/uL (3.50-5.40); RED CELL DISTRIBUTION WIDTH 12.9 % (11.5-14.5); WHITE BLOOD COUNT 6.6 x10^3/uL (4.0-11.0)
[2022-04-03] MEDS: IV NORMAL SALINE 1000ML BAG 1,000 ML IV SCH ×2 (05:07→16:06)
[2022-04-03 05:08] LABS: CALCIUM 9.3 mg/dL (8.5-10.1); CREATININE 1.2 mg/dL (0.6-1.0); GFR 43.6; MAGNESIUM 1.3 mg/dL (1.8-2.4); PHOSPHORUS 2.9 mg/dL (2.6-4.7); POTASSIUM 4.1 mmol/L (3.5-5.1)
[2022-04-03] MEDS: diphenhydrAMINE 50 MG/ML VIAL IVP PRN ×2 (05:08→22:00)
[2022-04-03 07:00] VITALS: BP_SYST 107; BP_SYST 135; BP_SYST 145; BP_DIAS 75; BP_DIAS 76; BP_DIAS 87
[2022-04-03] MEDS: INSULIN LISPRO 300 UNITS/3 ML VIAL. SQ SCH ×3 (08:00→17:00)
[2022-04-03] MEDS: GABAPENTIN 300 MG CAPSULE. PO SCH ×2 (09:19→22:00)
[2022-04-03] MEDS: FLUTICASONE 50MCG/NASAL SPRAY 16GM BOTTLE. NS SCH (09:19)
[2022-04-03] MEDS: ASPIRIN CHEWABLE 81 MG TABLET. PO SCH (09:19)
[2022-04-03] MEDS: MULTIVITAMIN with MINERAL TABLET. PO SCH (09:19)
[2022-04-03] MEDS: DULoxetine HCL 30 MG CAPSULE.DR PO SCH (09:19)
[2022-04-03] MEDS: ZINC SULFATE 220 MG CAPSULE. PO SCH (09:19)
[2022-04-03] MEDS: CALCIUM CARB/VIT D3 500/200 TABLET. PO SCH ×2 (09:19→17:53)
[2022-04-03] MEDS: CLOPIDOGREL BISULFATE 75 MG TABLET PO SCH (09:19)
--- NOTE | 2022-04-03 10:02 | PDOC ---
[employer] PROGRESS NOTE Date of Service DOS: DATE: 04/03/22 TIME: 10:00 Chief Complaint Chief Complaint Suicidal ideation Depression Weakness and shortness of breath likely related to anticholinergic effects of diphenhydramine Acute on chronic kidney injury, possible vasomotor nephropathy Elevated D-dimer concerning for PE Hyperglycemia Urticaria likely related to seasonal allergies History of CAD History of diabetes mellitus type 2, hemoglobin A1c of 7 History of stroke History of Present Illness History of Present Illness 04/03/2022 Patient seen and examined She denies suicidal ideation today States she is depressed because her 10 years ago and she is lonely Discussed with RN Discussed with case management Chart reviewed We are awaiting the psychiatric assessment team to evaluate her It should be noted that [facility] lives [facility] [place] Vitals/I&O Vitals/I&O: Vital Signs Date Time Temp Pulse Resp B/P (MAP) Pulse Ox O2 Delivery O2 Flow Rate FiO2 04/03/22 07:00 98.1 81 18 135/87 (103) 97 Room Air 98.1 I & O 04/02/22 04/02/22 04/03/22 15:00 23:00 07:00 Intake Total 0 ml 0 ml Output Total 425 ml Balance 0 ml -425 ml Physical Exam General: Alert Heart: Regular rate Lungs: Clear Abdomen: Normal bowel sounds Extremities: No clubbing Skin: No rashes Labs Labs: Laboratory Tests Test 04/02/22 12:15 04/02/22 14:20 04/02/22 15:10 04/02/22 15:25 White Blood Count 8.9 x10^3/uL (4.0-11.0) Red Blood Count 4.71 x10^6/uL (3.50-5.40) Hemoglobin 14.3 g/dL (12.0-15.5) Hematocrit 41.9 % (36.0-47.0) Mean Corpuscular Volume 89 fL (79-100) Mean Corpuscular Hemoglobin 30 pg (25-35) Mean Corpuscular Hemoglobin Concent 34 g/dL (31-37) Red Cell Distribution Width 13.1 % (11.5-14.5) Platelet Count 228 x10^3/uL (140-400) Neutrophils (%) (Auto) 70 % (31-73) Lymphocytes (%) (Auto) 19 % (24-48) Monocytes (%) (Auto) 5 % (0-9) Eosinophils (%) (Auto) 5 % (0-3) Basophils (%) (Auto) 0 % (0-3) Neutrophils # (Auto) 6.2 x10^3/uL (1.8-7.7) Lymphocytes # (Auto) 1.7 x10^3/uL (1.0-4.8) Monocytes # (Auto) 0.5 x10^3/uL (0.0-1.1) Eosinophils # (Auto) 0.4 x10^3/uL (0.0-0.7) Basophils # (Auto) 0.0 x10^3/uL (0.0-0.2) D-Dimer (Swati) 1.12 ug/mlFEU (0.00-0.50) Sodium Level 135 mmol/L (136-145) 136 mmol/L (136-145) Potassium Level 4.4 mmol/L (3.5-5.1) 4.5 mmol/L (3.5-5.1) Chloride Level 99 mmol/L (98-107) 103 mmol/L (98-107) Carbon Dioxide Level 22 mmol/L (21-32) 24 mmol/L (21-32) Anion Gap 14 (6-14) 9 (6-14) Blood Urea Nitrogen 45 mg/dL (7-20) 41 mg/dL (7-20) Creatinine 1.7 mg/dL (0.6-1.0) 1.5 mg/dL (0.6-1.0) Estimated GFR (Cockcroft-Gault) 29.1 33.7 BUN/Creatinine Ratio 26 (6-20) Glucose Level 177 mg/dL (70-99) 128 mg/dL (70-99) Lactic Acid Level 2.6 mmol/L (0.4-2.0) 1.0 mmol/L (0.4-2.0) Calcium Level 9.8 mg/dL (8.5-10.1) 9.1 mg/dL (8.5-10.1) Total Bilirubin 0.5 mg/dL (0.2-1.0) Aspartate Amino Transf (AST/SGOT) 18 U/L (15-37) Alanine Aminotransferase (ALT/SGPT) 19 U/L (14-59) Alkaline Phosphatase 73 U/L (46-116) Troponin I High Sensitivity 7 ng/L (4-50) Total Protein 6.5 g/dL (6.4-8.2) Albumin 3.1 g/dL (3.4-5.0) Albumin/Globulin Ratio 0.9 (1.0-1.7) Coronavirus (COVID-19)(PCR) Not detected (NOT DETECTD) SARS-CoV-2 Antigen (Rapid) Negative (NEGATIVE) Test 04/03/22 03:05 04/03/22 08:42 White Blood Count 6.6 x10^3/uL (4.0-11.0) Red Blood Count 4.58 x10^6/uL (3.50-5.40) Hemoglobin 13.7 g/dL (12.0-15.5) Hematocrit 41.3 % (36.0-47.0) Mean Corpuscular Volume 90 fL (79-100) Mean Corpuscular Hemoglobin 30 pg (25-35) Mean Corpuscular Hemoglobin Concent 33 g/dL (31-37) Red Cell Distribution Width 12.9 % (11.5-14.5) Platelet Count 223 x10^3/uL (140-400) Neutrophils (%) (Auto) 61 % (31-73) Lymphocytes (%) (Auto) 29 % (24-48) Monocytes (%) (Auto) 5 % (0-9) Eosinophils (%) (Auto) 6 % (0-3) Basophils (%) (Auto) 0 % (0-3) Neutrophils # (Auto) 4.1 x10^3/uL (1.8-7.7) Lymphocytes # (Auto) 1.9 x10^3/uL (1.0-4.8) Monocytes # (Auto) 0.3 x10^3/uL (0.0-1.1) Eosinophils # (Auto) 0.4 x10^3/uL (0.0-0.7) Basophils # (Auto) 0.0 x10^3/uL (0.0-0.2) Sodium Level 140 mmol/L (136-145) Potassium Level 4.1 mmol/L (3.5-5.1) Chloride Level 107 mmol/L (98-107) Carbon Dioxide Level 21 mmol/L (21-32) Anion Gap 12 (6-14) Blood Urea Nitrogen 37 mg/dL (7-20) Creatinine 1.2 mg/dL (0.6-1.0) Estimated GFR (Cockcroft-Gault) 43.6 Glucose Level 141 mg/dL (70-99) Calcium Level 9.3 mg/dL (8.5-10.1) Phosphorus Level 2.9 mg/dL (2.6-4.7) Magnesium Level 1.3 mg/dL (1.8-2.4) Glucose (Fingerstick) 142 mg/dL (70-99) Assessment and Plan Assessmemt and Plan Problems Medical Problems: (1) Shortness of breath Status: Acute (2) Weakness Status: Acute Suicidal ideation Depression Anxiety Loneliness Weakness and shortness of breath likely related to anticholinergic effects of diphenhydramine Acute on chronic kidney injury, possible vasomotor nephropathy Elevated D-dimer concerning for PE Hyperglycemia Urticaria likely related to seasonal allergies History of CAD History of diabetes mellitus type 2, hemoglobin A1c of 7 History of stroke Plan Awaiting psychiatric assessment team evaluation For now continue the following Home meds DVT prophylaxis Full code Trend labs Encourage p.o. intake IV fluids Comment Review of Relevant I have reviewed the following items kaylee (where applicable) has been applied. Medications: Current Medications Medications (Trade) Dose Ordered Sig/Nohemi Route PRN Reason Start Time Stop Time Status Last Admin Dose Admin Sodium Chloride 500 ml @ 500 mls/hr 1X ONCE IV 04/02/22 11:45 04/02/22 12:44 DC 04/02/22 12:30 Cetirizine HCl (ZyrTEC) 10 mg 1X ONCE PO 04/02/22 15:00 04/02/22 15:01 DC 04/02/22 15:00 Sodium Chloride 1,000 ml @ 100 mls/hr Q10H IV 04/02/22 18:15 04/03/22 05:07 Diphenhydramine HCl (Benadryl) 25 mg PRN Q6HRS PRN IVP ITCHING 04/02/22 18:15 04/03/22 05:08 Aspirin (Aspirin Chewable) 81 mg DAILYWBKFT PO 04/03/22 08:00 04/03/22 09:19 Clopidogrel Bisulfate (Plavix) 75 mg DAILY PO 04/03/22 09:00 04/03/22 09:19 Duloxetine HCl (Cymbalta) 30 mg DAILY PO 04/03/22 09:00 04/03/22 09:19 Fluticasone Propionate (Flonase) 2 spray DAILY NS 04/03/22 09:00 04/03/22 09:19 Calcium/Vitamin D (Oscal D 500mg/ 200uts) 1 tab BIDWMEALS PO 04/03/22 08:00 04/03/22 09:19 Gabapentin (Neurontin) 300 mg BID PO 04/02/22 21:00 04/03/22 09:19 Multivitamins (Thera M Plus) 1 tab DAILY PO 04/03/22 09:00 04/03/22 09:19 Zinc Sulfate (Orazinc) 220 mg DAILY PO 04/03/22 09:00 04/03/22 09:19 Cetirizine HCl (ZyrTEC) 10 mg QHS PO 04/02/22 21:00 04/02/22 21:48 Enoxaparin Sodium (Lovenox 30mg Syringe) 30 mg 1X ONCE SQ 04/02/22 18:15 04/02/22 18:24 DC 04/02/22 19:56 Justifications for Admission Other Justification WILLI ROBERT III DO April 03, 2022 10:02
[2022-04-03 11:00] VITALS: BP_SYST 125; BP_SYST 133; BP_SYST 148; BP_DIAS 70; BP_DIAS 84; BP_DIAS 92
--- NOTE | 2022-04-03 12:05 | RAD ---
EXAM: Pulmonary ventilation-perfusion scan. HISTORY: Dyspnea. TECHNIQUE: Anterior projection ventilation images of the chest were obtained during the inhalation of 40 mCi Xe-133 gas. Anterior, posterior, bilateral oblique and bilateral lateral images of the chest were obtained following the administration of 5.5 mCi Tc-99m MAA. COMPARISON: Chest radiograph obtained 04/02/2022 FINDINGS: The ventilation images demonstrate slight heterogeneous accumulation of radiotracer within both lungs. No asymmetric radiotracer retention is seen. There is also diffusely heterogeneous radiot racer activity within both lungs on perfusion images. This can be seen with chronic obstructive pulmo nary disease. There is no convincing ventilation-perfusion mismatch to suggest pulmonary embolism. IMPRESSION: 1. Diffusely heterogeneous radiotracer activity, a finding which can be seen with chronic obstructive pulmonary disease. 2. Low probability for pulmonary embolism. Electronically signed by: Barbara Cramer MD (04/03/2022 12:03 PM) [id number]
[2022-04-03 15:00] VITALS: BP_SYST 124; BP_SYST 138; BP_SYST 151; BP_DIAS 76; BP_DIAS 89
[2022-04-03] MEDS: diphenhydrAMINE HCL 25 MG CAPSULE PO PRN (16:02)
[2022-04-03 19:00] VITALS: BP 150/78
[2022-04-03] MEDS: CETIRIZINE HCL 10 MG TABLET. PO SCH (22:00)
[2022-04-03 23:00] VITALS: BP 148/82
[2022-04-04 03:00] VITALS: BP 152/83
[2022-04-04] MEDS: IV NORMAL SALINE 1000ML BAG 1,000 ML IV SCH ×2 (06:12→10:15)
[2022-04-04 07:00] VITALS: BP 169/82
[2022-04-04] MEDS: INSULIN LISPRO 300 UNITS/3 ML VIAL. SQ SCH ×2 (08:00→12:00)
[2022-04-04] MEDS: MULTIVITAMIN with MINERAL TABLET. PO SCH (09:10)
[2022-04-04] MEDS: CLOPIDOGREL BISULFATE 75 MG TABLET PO SCH (09:10)
[2022-04-04] MEDS: ASPIRIN CHEWABLE 81 MG TABLET. PO SCH (09:10)
[2022-04-04] MEDS: GABAPENTIN 300 MG CAPSULE. PO SCH (09:10)
[2022-04-04] MEDS: ZINC SULFATE 220 MG CAPSULE. PO SCH (09:10)
[2022-04-04] MEDS: CALCIUM CARB/VIT D3 500/200 TABLET. PO SCH (09:10)
[2022-04-04] MEDS: DULoxetine HCL 30 MG CAPSULE.DR PO SCH (09:10)
[2022-04-04] MEDS: FLUTICASONE 50MCG/NASAL SPRAY 16GM BOTTLE. NS SCH (09:12)
[2022-04-04] MEDS: diphenhydrAMINE HCL 25 MG CAPSULE PO PRN (09:14)
[2022-04-04 09:22] LABS: BASO % 0 % (0-3); EOS # 0.4 x10^3/uL (0.0-0.7); EOS % 6 % (0-3); HEMATOCRIT 40.1 % (36.0-47.0); HEMOGLOBIN 13.1 g/dL (12.0-15.5); LYMPH # 1.8 x10^3/uL (1.0-4.8); LYMPH % 28 % (24-48); MEAN CORPUSCULAR HEMOGLOBIN 30 pg (25-35); MEAN CORPUSCULAR HGB CONC 33 g/dL (31-37); MEAN CORPUSCULAR VOLUME 92 fL (79-100); MONO # 0.4 x10^3/uL (0.0-1.1); MONO % 6 % (0-9); NEUT # 3.7 x10^3/uL (1.8-7.7); NEUT % 60 % (31-73); PLATELET COUNT 218 x10^3/uL (140-400); RED BLOOD COUNT 4.38 x10^6/uL (3.50-5.40); RED CELL DISTRIBUTION WIDTH 13.2 % (11.5-14.5); WHITE BLOOD COUNT 6.3 x10^3/uL (4.0-11.0)
--- NOTE | 2022-04-04 09:30 | PDOC ---
[employer] PROGRESS NOTE Date of Service DOS: DATE: 04/04/22 TIME: 09:29 Chief Complaint Chief Complaint Suicidal ideation Depression Weakness and shortness of breath likely related to anticholinergic effects of diphenhydramine Acute on chronic kidney injury, possible vasomotor nephropathy Elevated D-dimer concerning for PE Hyperglycemia Urticaria likely related to seasonal allergies History of CAD History of diabetes mellitus type 2, hemoglobin A1c of 7 History of stroke History of Present Illness History of Present Illness 04/04/2022 Patient seen and examined Discussed with RN Chart reviewed She denies suicidal ideation No one-to-one observation She has been cleared by psychiatric assessment team Will discharge home 04/03/2022 Patient seen and examined She denies suicidal ideation today States she is depressed because her 10 years ago and she is lonely Discussed with RN Discussed with case management Chart reviewed We are awaiting the psychiatric assessment team to evaluate her It should be noted that she lives in a [facility] (it is a duplex) Vitals/I&O Vitals/I&O: Vital Signs Date Time Temp Pulse Resp B/P (MAP) Pulse Ox O2 Delivery O2 Flow Rate FiO2 04/04/22 07:00 98.1 67 18 169/82 (111) 97 Room Air 98.1 I & O 04/03/22 04/03/22 04/04/22 15:00 23:00 07:00 Intake Total 375 ml 1200 ml Balance 375 ml 1200 ml Physical Exam General: Alert Heart: Regular rate Lungs: Clear Abdomen: Normal bowel sounds Extremities: No clubbing Skin: No rashes Labs Labs: Laboratory Tests Test 04/03/22 12:04 04/03/22 16:38 04/03/22 20:49 04/04/22 07:58 Glucose (Fingerstick) 143 mg/dL (70-99) 137 mg/dL (70-99) 175 mg/dL (70-99) 141 mg/dL (70-99) Assessment and Plan Assessmemt and Plan Problems Medical Problems: (1) Shortness of breath Status: Acute (2) Weakness Status: Acute Resolving suicidal ideation Depression Anxiety Loneliness Weakness and shortness of breath likely related to anticholinergic effects of diphenhydramine Acute on chronic kidney injury, possible vasomotor nephropathy Elevated D-dimer concerning for PE Hyperglycemia Urticaria likely related to seasonal allergies History of CAD History of diabetes mellitus type 2, hemoglobin A1c of 7 History of stroke Plan Discharge Comment Review of Relevant I have reviewed the following items kaylee (where applicable) has been applied. Justifications for Admission Other Justification WILLI ROBERT III DO April 04, 2022 09:30
[2022-04-04] MEDS ORDERED: LORA0.5T96 PO (09:33)
--- NOTE | 2022-04-04 09:35 | SNU/HH DC ---
DISCHARGE WITH HOME HEALTH DISCHARGE INFORMATION: Final Diagnosis: Problems Medical Problems: (1) Shortness of breath Status: Acute (2) Weakness Status: Acute Condition on Discharge: Stable CODE STATUS: Code Status: Full HOME HEALTH: Face to Face: I certify this patient is under my care and that I, or a nurse practitioner or physician's customer service assistant working with me, had a face to face encounter that meets the physician face to face encounter requirements with this patient on []. Medical Complications: Other (Depression) Care Home For: Assess & Educate Safety RN For Eval/Treatment: Yes Physical Therapy For: Evalulation/Treatment Occupational Therapy For: Evaluation/Treatment Home Health Aide For: Self-care MED SURG RN For: Community Resources Pt Meets Homebound Status: Poor coordination w/ amb. POST DISCHARGE ORDERS: Activity Instructions for Disc: Activity as tolerated Weight Bearing Status after Di: As tolerated DIET AFTER DISCHARGE: ADA CHECKS AFTER DISCHARGE: Checks after discharge: Check blood press - daily, Check blood sugar, ac/hs, Check your Temp as needed TREATMENT/EQUIPMENT ORDERS: Adaptive Equipment Issued: None CERTIFICATION STATEMENT: Certification Statement: Certification Statement: Based on the above finding, I certify that this patient is confined to the home and needs intermittent jail care, physical therapy and/or speech therapy, or continues to need occupational therapy.~ This patient is under my care, and I have initiated the establishment of the plan of care.~ This patient will be followed by myself or a community physician who will periodically review the plan of care. Home Meds Active Scripts Lorazepam (ATIVAN) 0.5 Mg Tablet, 0.5 MG PO PRN Q6HRS PRN for ANXIETY / AGITATION for 14 Days, #20 TAB Prov:WILLI RENEE III DO 04/04/22 Zinc Gluconate (ZINC GLUCONATE) 100 Mg Tablet, 1 TAB PO DAILY for COVID for 30 Days, #15 TAB 0 Refills Prov:JACQUIE MISTRY MD 01/22/21 Prednisone (PREDNISONE ) 10 Mg Tablet, 10 MG PO UD for covid, #30 TAB 0 Refills Take 5 tablets by mouth daily for 2 days, then take 4 tablets by mouth daily for 2 days, then take 3 tablets by mouth daily for 2 days, then take 2 tablets by mouth daily for 2 days, then take 1 tablets by mouth daily for 2 days, then stop. Prov:JACQUIE MISTRY MD 01/22/21 Guaifenesin/Codeine Phosphate (Codeine-Guaifen 10-100 mg/5 ml) 120 Ml Liquid, 5 ML PO PRN Q6HRS PRN for COUGH, #60 LIQUID Prov:JACQUIE MISTRY MD 01/22/21 Docusate Sodium (DOK) 100 Mg Capsule, 100 MG PO PRN DAILY PRN for HARD STOOLS, #30 CAP Prov:JACQUIE MISTRY MD 01/22/21 Aspirin (ASPIRIN) 81 Mg Tab.chew, 81 MG PO DAILYWBKFT for cardiac, #30 TAB.CHEW Prov:JACQUIE MISTRY MD 01/22/21 Enoxaparin Sodium (ENOXAPARIN SODIUM) 40 Mg/0.4 Ml Disp.syrin, 40 MG SQ Q24H for COVID, #3 DIS.SYR Prov:JACQUIE MISTRY MD 01/22/21 Doxycycline Hyclate (DOXYCYCLINE HYCLATE) 100 Mg Tablet, 100 MG PO BID for pneumonia, #14 TAB Prov:JACQUIE MISTRY MD 01/22/21 Reported Medications Cinnamon Bark (CINNAMON) 500 Mg Capsule, 2000 MG PO BID for supplement, CAP 01/20/21 Cranberry Extract (CRANBERRY) 250 Mg Capsule, 1 CAP PO BID for supplement for 30 Days, #60 CAP 0 Refills 01/20/21 [avenova] No Conflict Check 01/20/21 Diclofenac Sodium (VOLTAREN) 100 Gm Gel..gram., 1 GM TP QID PRN for PAIN for 30 Days, #1 EACH 0 Refills apply to affected area(s) 01/20/21 Gabapentin (GABAPENTIN) 600 Mg Tablet, 300 MG PO BID for NEUROGENIC PAIN, TAB 01/20/21 Duloxetine Hcl (CYMBALTA) 30 Mg Capsule.dr, 1 CAP PO DAILY for pain, #30 CAP 5 Refills 01/20/21 Nitroglycerin (NITROSTAT) 0.4 Mg Tab.subl, 0.4 MG SL PRN Q5MIN PRN for CHEST PAIN, ML 01/20/21 Calcium Carb/Vit D3/Minerals (CALCIUM 600+D PLUS MINERALS TB) 1 Each Tablet, 2 TAB PO BID for supplement for 30 Days, #120 TAB 0 Refills 01/20/21 Multivits-Min/Iron/FA/Lutein (Centrum Silver Women Tablet) 1 Each Tablet, 1 EACH PO DAILY for vitamin, TAB 01/20/21 Fluticasone Propionate (FLUTICASONE PROPIONATE NASAL SPRAY) 16 Gm [place].susp, 2 SPRAY NS DAILY for allergies, #1 INHALER 11 Refills 01/20/21 Loratadine (LORATADINE) 10 Mg Tablet, 1 TAB PO DAILY for allergies, #30 TAB 5 Refills 01/20/21 Lisinopril (LISINOPRIL) 40 Mg Tablet, 1 TAB PO DAILY for blood pressure, #30 TAB 5 Refills 01/20/21 Lovastatin (LOVASTATIN) 40 Mg Tablet, 40 MG PO HS for cholesterol, TAB 01/20/21 Metformin Hcl (METFORMIN HCL) 500 Mg Tablet, 500 MG PO BIDWMEALS PRN for glucose, TAB 0 Refills 01/20/21 Glipizide (GLIPIZIDE) 5 Mg Tablet, 1 TAB PO BID for glucose, #60 TAB 3 Refills 01/20/21 Clopidogrel Bisulfate (CLOPIDOGREL) 75 Mg Tablet, 1 TAB PO DAILY for blood thinner, #90 TAB 1 Refill 01/20/21 WILLI RENEE III DO April 04, 2022 09:35
[2022-04-04 09:39] LABS: CALCIUM 9.3 mg/dL (8.5-10.1); GFR 53.8; MAGNESIUM 1.1 mg/dL (1.8-2.4); POTASSIUM 4.2 mmol/L (3.5-5.1)
[2022-04-04 11:00] VITALS: BP 125/71
--- NOTE | 2022-04-04 14:00 | NUR ---
pt discharging home with self care, instructions reviewed with patient, verbalized understanding. Pt transported off unit in wheelchair by RESTORATION TECHNICIAN with all belongings.
--- NOTE | 2022-04-07 10:02 | DS ---
DATE OF DISCHARGE: 04/04/2022 ADMITTING DIAGNOSIS: Weakness and suicidal ideation. DISCHARGE DIAGNOSES: Resolving suicidal ideation, resolving weakness, history of diabetes, urticaria, allergic rhinitis, coronary artery disease, history of stroke. CONSULTS: Psychiatric assessment team. HOSPITAL COURSE: The patient is a pleasant, middle-aged female who presented with weakness and was having suicidal ideation. We admitted her, gave her empiric IV fluids, did some physical therapy and occupational therapy. We had her on 1:1 observation, we consulted the psychiatric assessment team. Yesterday, she was cleared from the psychiatric assessment team. She was not suicidal. We discharged to home. DISPOSITION: Home. ACTIVITY: As tolerated. DIET: Low sodium. DISCHARGE MEDICATIONS: Please see the MRAD. Lorazepam .4 q.6, aspirin 81 a day, cinnamon bark, calcium and vitamins, cranberry, Plavix 75 a day, diclofenac cream, docusate, doxycycline 100 b.i.d., Cymbalta 30 a day, Lovenox 40 subcutaneous daily, fluticasone, gabapentin 300 b.i.d., glipizide 5 b.i.d., guaifenesin with codeine cough syrup, lisinopril 40 a day, loratadine 10 a day, lovastatin 40 a day, metformin 500 b.i.d., vitamins, p.r.n. nitro, prednisone 10 a day, and zinc. Total time 32 minutes. TYREE/STEVIE/[facility]: TYREE/jatin TID: [id number]
== END 2022-04-04 14:00 | disposition home or self-care (01) ==
LOC: ER 11:30 → INTOOBSV 16:33 → 4 NORTH 16:33
PROVIDERS: ADMIT Internal Medicine; ATTEND Internal Medicine
DX: M62.81 Muscle weakness (generalized) (principal); Z20.822 Contact with and (suspected) exposure to COVID-19; R45.851 Suicidal ideations; N17.0 Acute kidney failure with tubular necrosis; E11.65 Type 2 diabetes mellitus with hyperglycemia; I12.9 Hypertensive chronic kidney disease with stage 1 through stage 4 chronic kidney disease, or unspecified chronic kidney disease; N18.9 Chronic kidney disease, unspecified; I25.10 Atherosclerotic heart disease of native coronary artery without angina pectoris; J30.2 Other seasonal allergic rhinitis; J98.11 Atelectasis; F32.A Depression, unspecified; L50.9 Urticaria, unspecified; R06.02 Shortness of breath; F41.9 Anxiety disorder, unspecified; E86.0 Dehydration; Z86.73 Personal history of transient ischemic attack (TIA), and cerebral infarction without residual deficits; Z90.49 Acquired absence of other specified parts of digestive tract; Z90.710 Acquired absence of both cervix and uterus; Z98.891 History of uterine scar from previous surgery; Z79.82 Long term (current) use of aspirin; Z79.899 Other long term (current) drug therapy; Z98.890 Other specified postprocedural states
CPT/HCPCS: 36415; 71045; 78582; 80048; 80053; 82962; 83605; 83735; 84100; 84484; 85025; 85379; 87426; 93005; 96372; 96374; 96376; 99285; A9540; A9558; G0378; J1200; J1650; J1815; J7030; J7040; Q0163; U0003; G0379